=== PATIENT | male | born 1980 | race Caucasian/White ===

== ENCOUNTER 2017-01-16 18:14 | Emergency (ER) | payer OTHER ==
[2017-01-16 18:20] VITALS: BMI 26.9
[2017-01-16 18:30] VITALS: TEMP 98.4; O2SAT 100
[2017-01-16] MEDS ORDERED: Sodium Chloride 0.9% 1,000 ML IV STA (18:31)
[2017-01-16 18:43] LABS: ADD MANUAL DIFF? NO
--- NOTE | 2017-01-16 18:50 | RAD ---
HISTORY: chest pain COMPARISON: Comparison chest 08/06/2015 FINDINGS: LUNGS: Minor bibasilar atelectasis left greater than right minor PLEURA: No significant pleural effusion identified, no pneumothorax apparent. CARDIOVASCULAR: Normal. OSSEOUS STRUCTURES: No significant abnormalities. VISUALIZED UPPER ABDOMEN: Normal. OTHER FINDINGS: None. IMPRESSION: Bibasilar atelectasis left greater than right
[2017-01-16 18:51] LABS: BASO # 0.04 K/mm3 (0.0-2.0); BASO % 0.4 % (0.0-3.0); EOS # 0.2 (0.0-0.7); EOS % 1.8 % (1.5-5.0); GRAN # 5.74 (1.4-6.5); GRAN % 62.9 % (50.0-68.0); HEMATOCRIT 44.3 % (42.0-52.0); LYMPH # 2.4 (1.2-3.4); LYMPH % 25.8 % (22.0-35.0); MEAN CELL VOLUME 87.2 fL (80.0-105.0); MEAN CORPUSCULAR HEMOGLOBIN 30.7 pg (25.0-35.0); MEAN CORPUSCULAR HGB CONC 35.2 g/dl (31.0-37.0); MEAN PLATELET VOLUME 10.7 fl (7.0-11.0); MONO # 0.8 (0.1-0.6); MONO % 9.1 % (1.0-6.0); PLATELET COUNT 185 10^3/uL (120.0-450.0); RED CELL DISTRIBUTION WIDTH 13.3 % (11.5-14.5); WHITE BLOOD COUNT 9.1 10^3/ul (4.5-11.0)
--- NOTE | 2017-01-16 18:54 | ED PDOC ---
Arrival/HPI - General Chief Complaint: Chest Pain Time Seen by Provider: 01/16/17 18:14 Historian: Patient - History of Present Illness Narrative History of Present Illness (Text): 01/16/17 18:15 A 36 year old male, who denies any significant past medical history, presents to the emergency department complaining of a headache. Patient reports he developed a headache earlier this afternoon slowly and got worse over several hours and felt like it was going down his neck. Headache is associated with nausea and chest pain that radiates to the back. Headache is not the worse headache of his life. Patient notes chest pain upon taking a deep breath. He denies any fever, abdominal pain, vomiting, diarrhea, focal weakness or any other complaints at this time. PMD: Dr. Abbott Time/Duration: 1-3 hours Symptom Onset: Sudden Symptom Course: Unchanged Quality: Other Activities at Onset: Rest Context: Home Past Medical History - Provider Review Nursing Documentation Reviewed: Yes - Infectious Disease Hx of Infectious Diseases: None - Cardiac Hx Cardiac Disorders: No - Pulmonary Hx Respiratory Disorders: No - Neurological Hx Neurological Disorder: No - HEENT Hx HEENT Disorder: No - Renal Hx Renal Disorder: No - Endocrine/Metabolic Hx Endocrine Disorders: No - Hematological/Oncological Hx Blood Disorders: No - Integumentary Hx Dermatological Disorder: No - Musculoskeletal/Rheumatological Other/Comment: rt knee surgery - Gastrointestinal Hx Gastrointestinal Disorders: No - Psychiatric Hx Anxiety: Yes Hx Substance Use: No - Surgical History Hx Orthopedic Surgery: Yes (Rt. Knee) - Anesthesia Hx Anesthesia: Yes Hx Anesthesia Reactions: No Hx Malignant Hyperthermia: No - Suicidal Assessment Feels Threatened In Home Enviroment: No Family/Social History - Physician Review Nursing Documentation Reviewed: Yes Family/Social History: Unknown Family HX Smoking Status: Heavy Smoker > 10 Cigarettes Daily Hx Alcohol Use: No Hx Substance Use: No Allergies/Home Meds Allergies/Adverse Reactions: Allergies No Known Allergies Allergy (Verified 01/16/17 18:19) Review of Systems - Physician Review All systems were reviewed & negative as marked: Yes - Review of Systems Constitutional: absent: Fevers Eyes: absent: Vision Changes Respiratory: absent: SOB Cardiovascular: Chest Pain Gastrointestinal: Nausea. absent: Abdominal Pain, Diarrhea, Vomiting Genitourinary Male: Other (burning with urination) Musculoskeletal: Neck Pain Neurological: Headache. absent: Focal Weakness Physical Exam Vital Signs Reviewed: Yes Vital Signs Temp Pulse Resp BP Pulse Ox 01/16/17 19:50 69 18 128/83 100 01/16/17 18:22 98.4 F 65 18 143/89 100 Temperature: Afebrile Blood Pressure: Normal Pulse: Regular Respiratory Rate: Normal Appearance: Positive for: Well-Appearing, Non-Toxic, Comfortable Pain Distress: None Mental Status: Positive for: Alert and Oriented X 3 - Systems Exam Head: Present: Atraumatic, Normocephalic Pupils: Present: PERRL Extroacular Muscles: Present: EOMI Conjunctiva: Present: Normal Mouth: Present: Moist Mucous Membranes Pharnyx: Present: Normal. No: ERYTHEMA, EXUDATE Neck: Present: Normal Range of Motion Respiratory/Chest: Present: Clear to Auscultation, Good Air Exchange. No: Respiratory Distress, Accessory Muscle Use Cardiovascular: Present: Regular Rate and Rhythm, Normal S1, S2. No: Murmurs Abdomen: Present: Normal Bowel Sounds. No: Tenderness, Distention, Peritoneal Signs Back: Present: Normal Inspection Upper Extremity: Present: Normal Inspection. No: Cyanosis, Edema Lower Extremity: Present: Normal Inspection. No: Edema Neurological: Present: GCS=15, CN II-XII Intact, Speech Normal Skin: Present: Warm, Dry, Normal Color. No: Rashes Psychiatric: Present: Alert, Oriented x 3, Normal Insight, Normal Concentration Medical Decision Making ED Course and Treatment: 01/16/17 18:15 Impression: A 36 year old male with a headache and chest pain. Differential Diagnosis include but are not limited to: ACS vs. dissection vs. migraine vs. tension headache Plan: -- Head CT -- Angio Chest CT -- Chest X-ray -- EKG -- Labs -- Urinalysis -- Pepcid, Reglan, Toradol and IV Fluids -- Reassess and disposition Prior Visits: Notes and results from previous visits were reviewed. The patient last presented to the emergency department on 11/04/16 for evaluation of right knee pain. Progress Notes: 01/16/17 21:31 CT Brain Results: FINDINGS: Brain: No intracranial hemorrhage. No mass. No definite edema. Ventricles: No hydrocephalus. Bones/joints: No acute fracture. Soft tissues: Unremarkable. Sinuses: Scattered minimal to mild mucosal thickening of ethmoid, RIGHT frontal sinuses. Mastoid air cells: No mastoid effusion. Orbits: Unremarkable as visualized. IMPRESSION: 1. No acute intracranial abnormality. 2. Incidental/non-acute findings are described above. CTA PE/Dissection Protocol: FINDINGS: Pulmonary arteries: No pulmonary embolism. Aorta: No aortic dissection. No aneurysm. Lungs: Mild atelectasis. No consolidation. Few pulmonary nodules, up to 0.3 cm. Pleural space: No significant effusion. No pneumothorax. Heart: No cardiomegaly. No significant pericardial effusion. Bones/joints: No acute fracture. No dislocation. Soft tissues: Unremarkable. Lymph nodes: Few subcentimeter short axis mediastinal and hilar lymph nodes. IMPRESSION: 1. No aortic dissection. 2. Pulmonary nodules. For low-risk patients, no follow-up is necessary. For high -risk patients (smoking history or other known risk factors) recommend CT at 12 months and if unchanged, no further follow-up. 3. Incidental/non-acute findings are described above. EXAM: CT Angiography Abdomen and Pelvis With Intravenous Contrast COMPARISON: No relevant prior studies available. FINDINGS: VASCULATURE: Aorta: No aortic dissection. No aneurysm. Celiac trunk and mesenteric arteries: No occlusion or significant stenosis. Renal arteries: No occlusion or significant stenosis. Iliac arteries: No occlusion or significant stenosis. ABDOMEN: Liver: No mass. Gallbladder and bile ducts: No calcified stones. No ductal dilation. Pancreas: No ductal dilation. No mass. Spleen: No splenomegaly. Adrenals: No mass. Kidneys and ureters: No hydronephrosis. No solid mass. Stomach and bowel: No obstruction. No mucosal thickening. Appendix: No findings to suggest acute appendicitis. PELVIS: Bladder: No mass. Reproductive: Unremarkable as visualized. ABDOMEN and PELVIS: Intraperitoneal space: No significant fluid collection. No free air. Bones/joints: No acute fracture. No dislocation. Soft tissues: Unremarkable. Lymph nodes: No pathologically enlarged lymph nodes. IMPRESSION: 1. No aortic dissection. 2. Incidental/non-acute findings are described above. Patient with noted history of slow onset headache. Additionally later saying he has had a lot of stress of late regarding work and has been thinking about it a lot. EKG and blood work are unremarkable. Imagin with no acute findings ( patient informed of the pulmonary nodules and need for follow up CT). He does have burning on urination - will d/c on cipro. He reports full resolution of his headache and chest pain and shortness of breath all his symptoms and is feeling much better; he has a pmd and will follow up with him. - Lab Interpretations Lab Results: 01/16/17 18:15 01/16/17 18:15 Lab Results 01/16/17 19:12: Urine Opiates Screen Negative, Urine Methadone Screen Negative, Ur Barbiturates Screen Negative, Ur Phencyclidine Scrn Negative, Ur Amphetamines Screen Negative, U Benzodiazepines Scrn Negative, U Oth Cocaine Metabols Negative, U Cannabinoids Screen Negative 01/16/17 19:12: Urine Color Yellow, Urine Appearance Clear, Urine pH 6.0, Ur Specific Martin >= 1.030, Urine Protein Negative, Urine Glucose (UA) Negative, Urine Ketones Negative, Urine Blood Negative, Urine Nitrate Negative, Urine Bilirubin Negative, Urine Urobilinogen 0.2, Ur Leukocyte Esterase Small H, Urine RBC 1 - 3, Urine WBC 5 - 10, Ur Epithelial Cells 0 - 2, Urine Bacteria Mod 01/16/17 18:15: Sodium 139, Potassium 3.7, Chloride 101, Carbon Dioxide 27, Anion Gap 15, BUN 11, Creatinine 0.9, Est GFR ( Amer) > 60, Est GFR (Non- Af Amer) > 60, Random Glucose 88, Calcium 9.4, Magnesium 2.2, Total Bilirubin 1.3, AST 22, ALT 42, Alkaline Phosphatase 74, Lactate Dehydrogenase 455, Total Creatine Kinase 117, Troponin I < 0.01, NT-Pro-B Natriuret Pep 24.5, Total Protein 8.1, Albumin 4.3, Globulin 3.8, Albumin/Globulin Ratio 1.1, Lipase 85 01/16/17 18:15: PT 10.9, INR 1.01, APTT 26.7 01/16/17 18:15: WBC 9.1 D, RBC 5.08, Hgb 15.6, Hct 44.3, MCV 87.2, MCH 30.7, MCHC 35.2, RDW 13.3, Plt Count 185, MPV 10.7, Gran % 62.9, Lymph % (Auto) 25.8, [place] % (Auto) 9.1 H, Eos % (Auto) 1.8, Baso % (Auto) 0.4, Gran # 5.74, Lymph # 2.4, [place] # 0.8 H, Eos # 0.2, Baso # 0.04 I have reviewed the lab results: Yes - RAD Interpretation Narrative RAD Interpretations (Text): 01/16/17 21:30 CXR: nad as read by me Radiology Orders: 01/16/17 18:27 CHEST PORTABLE [RAD] Stat 01/16/17 18:28 Brain [HEAD W/O CONTRAST] [CT] Stat 01/16/17 18:31 ANGIOGRAPHY DISECTION PROTOCOL [CT] Stat - EKG Interpretation EKG Interpretation (Text): 01/16/17 21:30 NSR @ 66; early repol; no ST/T changes c/w previous on 07/31/2016; normal intervals; normal axis. - Medication Orders Current Medication Orders: Discontinued Medications Famotidine (Pepcid) 20 mg IVP STAT STA Stop: 01/16/17 18:32 Last Admin: 01/16/17 18:44 Dose: 20 mg Sodium Chloride (Sodium Chloride 0.9%) 1,000 mls @ 999 mls/hr IV .Q1H1M STA Stop: 01/16/17 19:31 Last Admin: 01/16/17 18:45 Dose: 999 mls/hr Iohexol (Omnipaque 350 150 Ml) Confirm Administered Dose 150 ml .ROUTE .STK-MED ONE Stop: 01/16/17 19:13 Ketorolac Tromethamine (Toradol) 30 mg IVP STAT STA Stop: 01/16/17 18:32 Last Admin: 01/16/17 18:44 Dose: 30 mg Metoclopramide HCl (Reglan) 10 mg IVP STAT STA Stop: 01/16/17 18:32 Last Admin: 01/16/17 18:44 Dose: 10 mg - Scribe Statement The provider has reviewed the documentation as recorded by the Connie Causey Provider Scribe Attestation: All medical record entries made by the Marianaibdemarcus were at my direction and personally dictated by me. I have reviewed the chart and agree that the record accurately reflects my personal performance of the history, physical exam, medical decision making, and the department course for this patient. I have also personally directed, reviewed, and agree with the discharge instructions and disposition. Disposition/Present on Arrival - Present on Arrival Any Indicators Present on Arrival: No History of DVT/PE: No History of Uncontrolled Diabetes: No Urinary Catheter: No History of Decub. Ulcer: No History Surgical Site Infection Following: None - Disposition Have Diagnosis and Disposition been Completed?: Yes Diagnosis: Headache, Atypical chest pain, Dysuria Disposition: HOME/ ROUTINE Disposition Time: 21:40 Patient Plan: Discharge Condition: GOOD Discharge Instructions (ExitCare): Chest Pain (ED), Tension Headache (ED), Pulmonary Nodules (ED) Additional Instructions: Stop smoking. Follow up with your primary care doctor. Antibiotics as prescribed for urinary burning. Recommend CT scan of the chest in 6-12 months, to be arranged by your primary care doctor to follow up your pulmonary nodules. Return to the emergency department if any new concerning symptoms. Prescriptions: Ciprofloxacin [Cipro] 1 tab PO BID #14 tab Referrals: Dai Abbott MD [Primary Care Provider] - Follow up with primary Forms: WORK NOTE
[2017-01-16 18:57] LABS: ALB/GLOB RATIO 1.1 (1.1-1.8); ALKALINE PHOSPHATASE 74 U/L (38-133); ALT/SGPT 42 U/L (7-56); AST/SGOT 22 U/L (15-59); BILIRUBIN,TOTAL 1.3 mg/dL (0.2-1.3); BLOOD UREA NITROGEN 11 mg/dL (7-21); CALCIUM 9.4 mg/dL (8.4-10.5); CARBON DIOXIDE 27 mmol/L (21-33); CHLORIDE 101 mmol/L (98-107); GFR AFRICAN-AMERICAN > 60; GLUCOSE,RANDOM 88 mg/dL (70-110); LIPASE 85 U/L (23-300); MAGNESIUM 2.2 mg/dL (1.7-2.2); POTASSIUM 3.7 mmol/L (3.6-5.0); SODIUM 139 mmol/L (132-148); TOTAL PROTEIN 8.1 g/dL (5.8-8.3)
[2017-01-16 19:02] LABS: INR 1.01 (0.93-1.08); PARTIAL THROMBOPLASTIN TIME 26.7 Seconds (23.7-30.8)
[2017-01-16 19:09] LABS: TROPONIN I < 0.01 ng/mL
[2017-01-16 19:20] LABS: URINE BILIRUBIN NEGATIVE (NEGATIVE); URINE BLOOD NEGATIVE (NEGATIVE); URINE GLUCOSE (UA) NEGATIVE (NEGATIVE); URINE KETONE NEGATIVE (NEGATIVE); URINE LEUKOCYTE ESTERASE SMALL Leu/uL (NEGATIVE); URINE PROTEIN NEGATIVE mg/dL (<30 mg/dL); URINE UROBILINOGEN 0.2 E.U./dL (<1 E.U./dL)
[2017-01-16 19:44] LABS: URINE APPEARANCE CLEAR (CLEAR); URINE COLOR YELLOW (YELLOW)
[2017-01-16 20:18] LABS: URINE BACTERIA MOD (NEG); URINE EPITHELIAL CELLS 0 - 2 /hpf (0-5)
--- NOTE | 2017-01-16 20:59 | CT ---
EXAM: CT Head Without Intravenous Contrast CLINICAL HISTORY: 36 years old, male; Pain; Headache; Headache not specified TECHNIQUE: Axial computed tomography images of the head/brain without intravenous contrast. This CT exam was performed using one or more of the following dose reduction techniques: automated exposure control, adjustment of the mA and/or kV according to patient size, and/or use of iterative reconstruction technique. COMPARISON: CT - HEAD W/O CONTRAST 06/02/2016 11:33:09 AM FINDINGS: Brain: No intracranial hemorrhage. No mass. No definite edema. Ventricles: No hydrocephalus. Bones/joints: No acute fracture. Soft tissues: Unremarkable. Sinuses: Scattered minimal to mild mucosal thickening of ethmoid, RIGHT frontal sinuses. Mastoid air cells: No mastoid effusion. Orbits: Unremarkable as visualized. IMPRESSION: 1. No acute intracranial abnormality. 2. Incidental/non-acute findings are described above.
--- NOTE | 2017-01-16 21:16 | CT ---
EXAM: CT Angiography Chest Without and With Intravenous Contrast CLINICAL HISTORY: 36 years old, male; Signs and symptoms; Other: Chest pain radiating to back; Angina; Patient HX: R/O pe or disection; Additional info: Chest pain radiating to the back TECHNIQUE: Axial computed tomographic angiography images of the chest without and with intravenous contrast using pulmonary embolism protocol. This CT exam was performed using one or more of the following dose reduction techniques: automated exposure control, adjustment of the mA and/or kV according to patient size, and/or use of iterative reconstruction technique. MIP reconstructed images were created and reviewed. Coronal and sagittal reformatted images were created and reviewed. CONTRAST: 147 mL of OMNI 350 administered intravenously. COMPARISON: No relevant prior studies available. FINDINGS: Pulmonary arteries: No pulmonary embolism. Aorta: No aortic dissection. No aneurysm. Lungs: Mild atelectasis. No consolidation. Few pulmonary nodules, up to 0.3 cm. Pleural space: No significant effusion. No pneumothorax. Heart: No cardiomegaly. No significant pericardial effusion. Bones/joints: No acute fracture. No dislocation. Soft tissues: Unremarkable. Lymph nodes: Few subcentimeter short axis mediastinal and hilar lymph nodes. IMPRESSION: 1. No aortic dissection. 2. Pulmonary nodules. For low-risk patients, no follow-up is necessary. For high-risk patients (smoking history or other known risk factors) recommend CT at 12 months and if unchanged, no further follow-up. 3. Incidental/non-acute findings are described above. EXAM: CT Angiography Abdomen and Pelvis With Intravenous Contrast CLINICAL HISTORY: 36 years old, male; Signs and symptoms; Other: Chest pain radiating to back; Angina; Patient HX: R/O pe or disection; Additional info: Chest pain radiating to the back TECHNIQUE: Axial computed tomographic angiography images of the abdomen and pelvis with intravenous contrast. This CT exam was performed using one or more of the following dose reduction techniques: automated exposure control, adjustment of the mA and/or kV according to patient size, and/or use of iterative reconstruction technique. MIP reconstructed images were created and reviewed. Coronal and sagittal reformatted images were created and reviewed. CONTRAST: 147 mL of OMNI 350 administered intravenously. COMPARISON: No relevant prior studies available. FINDINGS: VASCULATURE: Aorta: No aortic dissection. No aneurysm. Celiac trunk and mesenteric arteries: No occlusion or significant stenosis. Renal arteries: No occlusion or significant stenosis. Iliac arteries: No occlusion or significant stenosis. ABDOMEN: Liver: No mass. Gallbladder and bile ducts: No calcified stones. No ductal dilation. Pancreas: No ductal dilation. No mass. Spleen: No splenomegaly. Adrenals: No mass. Kidneys and ureters: No hydronephrosis. No solid mass. Stomach and bowel: No obstruction. No mucosal thickening. Appendix: No findings to suggest acute appendicitis. PELVIS: Bladder: No mass. Reproductive: Unremarkable as visualized. ABDOMEN and PELVIS: Intraperitoneal space: No significant fluid collection. No free air. Bones/joints: No acute fracture. No dislocation. Soft tissues: Unremarkable. Lymph nodes: No pathologically enlarged lymph nodes. IMPRESSION: 1. No aortic dissection. 2. Incidental/non-acute findings are described above.
[2017-01-16 22:06] VITALS: BP 145/77; PULSE 64; RESP 20
--- NOTE | 2017-01-17 10:26 | CARD ---
APPROVED REPORT EKG Measurement Heart [id number] <Conclusion> Sinus rhythm with 1st degree AV block Early repolarization
== END 2017-01-16 22:07 | disposition home or self-care (01) ==
LOC: ED 18:14
DX: R07.89 Other chest pain (principal); R51 Headache; R30.0 Dysuria
CPT/HCPCS: 70450; 71010; 71275; 74175; 80053; 80324; 80345; 80346; 80349; 80353; 80358; 80361; 81001; 82550; 83615; 83690; 83735; 83880; 83992; 84484; 85025; 85610; 85730; 87086; 87491; 87591; 93005; 96361; 96374; 96375; 99285; J1885; J2765; J7040; Q9967

== ENCOUNTER 2017-02-10 21:30 | Emergency (ER) | payer OTHER ==
[2017-02-10 21:39] VITALS: BMI 26.9
[2017-02-10 21:59] VITALS: BP 129/83; PULSE 80; RESP 18; TEMP 98.1; O2SAT 99
--- NOTE | 2017-02-10 22:10 | ED PDOC ---
Arrival/HPI <Yayo Soto - Last Filed: 02/10/17 23:47> - General Historian: Patient - History of Present Illness Time/Duration: < week Symptom Onset: Gradual Symptom Course: Unchanged <Tu Thomas - Last Filed: 02/11/17 00:01> - General Chief Complaint: Abnormal Skin Integrity Time Seen by Provider: 02/10/17 21:35 - History of Present Illness Narrative History of Present Illness (Text): 36 M with pmh of smoking presents with pain in his surgical scar. Pt states that aprox 2 weeks ago he had an Lipoma removed from his LUQ of his abdomen and now he feels pain by the scar. He also c/o of a productive cough with green phlegm that has been present for a few days. Denies any fevers or chills. He denies any carpenter, dizziness, sob, cp, abd pain, n/v/d. (Tu Thomas) Past Medical History - Provider Review Nursing Documentation Reviewed: Yes - Infectious Disease Hx of Infectious Diseases: None - Cardiac Hx Cardiac Disorders: No - Pulmonary Hx Respiratory Disorders: No - Neurological Hx Neurological Disorder: No - HEENT Hx HEENT Disorder: No - Renal Hx Renal Disorder: No - Endocrine/Metabolic Hx Endocrine Disorders: No - Hematological/Oncological Hx Blood Disorders: No - Integumentary Hx Dermatological Disorder: No - Musculoskeletal/Rheumatological Other/Comment: rt knee surgery - Gastrointestinal Hx Gastrointestinal Disorders: No - Psychiatric Hx Anxiety: Yes Hx Substance Use: No - Surgical History Hx Orthopedic Surgery: Yes (Rt. Knee) Other/Comment: tumor removal 2 weeks ago - Anesthesia Hx Anesthesia: Yes Hx Anesthesia Reactions: No Hx Malignant Hyperthermia: No - Suicidal Assessment Feels Threatened In Home Enviroment: No <Tu Thomas - Last Filed: 02/11/17 00:01> Family/Social History Family/Social History: No Known Family HX Smoking Status: Heavy Smoker > 10 Cigarettes Daily Hx Alcohol Use: No Hx Substance Use: No <Tu Thomas - Last Filed: 02/11/17 00:01> Allergies/Home Meds <Yayo Soto - Last Filed: 02/10/17 23:47> <Tu Thomas - Last Filed: 02/11/17 00:01> Allergies/Adverse Reactions: Allergies No Known Allergies Allergy (Verified 01/16/17 18:19) Review of Systems - Physician Review All systems were reviewed & negative as marked: Yes - Review of Systems Constitutional: absent: Fatigue, Fevers Respiratory: Cough, Sputum (green ). absent: SOB Cardiovascular: absent: Chest Pain Gastrointestinal: absent: Abdominal Pain, Nausea, Vomiting <Tu Thomas - Last Filed: 02/11/17 00:01> Physical Exam Vital Signs Reviewed: Yes Temperature: Afebrile Blood Pressure: Normal Pulse: Regular Respiratory Rate: Normal Appearance: Positive for: Well-Appearing, Non-Toxic, Comfortable Pain Distress: None Mental Status: Positive for: Alert and Oriented X 3 - Systems Exam Head: Present: Atraumatic, Normocephalic Pupils: Present: PERRL Extroacular Muscles: Present: EOMI Conjunctiva: Present: Normal Mouth: Present: Moist Mucous Membranes Neck: Present: Normal Range of Motion Respiratory/Chest: Present: Clear to Auscultation, Good Air Exchange. No: Respiratory Distress, Accessory Muscle Use, Wheezes, Rales, Rhonchi Cardiovascular: Present: Regular Rate and Rhythm, Normal S1, S2. No: Murmurs Abdomen: Present: Normal Bowel Sounds, Scars (LUQ surgical scar aprox 2-3 cm. No erythema, edema, or drainage. non fluctuant. Sutures from surgery in place ) . No: Tenderness, Distention, Peritoneal Signs Upper Extremity: Present: Normal Inspection. No: Cyanosis, Edema Lower Extremity: Present: Normal Inspection. No: Edema Neurological: Present: GCS=15, CN II-XII Intact, Speech Normal Skin: Present: Warm, Dry, Normal Color. No: Rashes Psychiatric: Present: Alert, Oriented x 3, Normal Insight, Normal Concentration <Tu Thomas - Last Filed: 02/11/17 00:01> Vital Signs Temp Pulse Resp BP Pulse Ox 02/10/17 21:49 98.1 F 80 18 129/83 99 Medical Decision Making - RAD Interpretation Lap Hand Tool: ED Physician <Yayo Soto - Last Filed: 02/10/17 23:47> <Tu Thomas - Last Filed: 02/11/17 00:01> ED Course and Treatment: Pt seen and evaluated by medical operations supervisor. Pt presented for pain to surgical scar site s/p lipoma removal from LUQ. Pt also complaining of productive cough with green phlegm. Aware and agree with HPI, clinical findings, plan, and management. Plan: -- Chest X-ray -- Duoneb -- Reassess and disposition Progress Notes: (Yayo Soto) Impression: 36 M with pmh of smking presents with LUQ abdominal surgical scar and productive cough. DDx including but not limited to : r/o Cellulites / Broncitis / r/o pneumonia Plan: - Duoneb - Chest Xray - Reassess and disposition Progress note: 02/10/17 22:45 - Removed the sutures under sterile technique from the surgery done 2 weeks ago. Applied Bacitracin and placed 5 Steri strips on the incision covered by 4x4 leonard. The wound is non erythematous, non edematous, no drainage visualized. No surrounding cellulites. 02/10/17 23:51 CXR as read by me accompanied by Dr Soto shows no acute disease. Pt states that he feels better and his symptoms have improved. He as been instructed to follow up with his Surgeon and PMD with in 1-2 days. He was also instructed to take azithromycin 250mg for days 2-5. Stat 500mg dose here. Also recommended to stop smoking. Pt verbalized understanding. (Tu Thoams) - RAD Interpretation Radiology Orders: 02/10/17 22:01 CXR [CHEST TWO VIEWS (PA/LAT)] [RAD] Stat - Medication Orders Current Medication Orders: Azithromycin (Zithromax) 500 mg PO ONCE STA PRN Reason: Protocol Stop: 02/10/17 23:49 Discontinued Medications Albuterol/Ipratropium (Duoneb 3 Mg/0.5 Mg (3 Ml) Ud) 3 ml IH Q15M JEREMIAS Stop: 02/10/17 22:46 Last Admin: 02/10/17 22:14 Dose: 3 ml - PA / MICA PLATE LAYER HAND / Resident Statement PJ has reviewed & agrees with the documentation as recorded. PJ has examined the patient and agrees with the treatment plan. <Yayo Soto - Last Filed: 02/10/17 23:47> - PA / MICA PLATE LAYER HAND / Resident Statement PJ has reviewed & agrees with the documentation as recorded. PJ has examined the patient and agrees with the treatment plan. <Jovany Thomasa - Last Filed: 02/11/17 00:01> Disposition/Present on Arrival <Yayo Soto - Last Filed: 02/10/17 23:47> - Present on Arrival Any Indicators Present on Arrival: No History of DVT/PE: No History of Uncontrolled Diabetes: No Urinary Catheter: No History of Decub. Ulcer: No History Surgical Site Infection Following: None - Disposition Have Diagnosis and Disposition been Completed?: Yes Disposition Time: 23:45 Patient Plan: Discharge <Jovany Thomasa - Last Filed: 02/11/17 00:01> - Disposition Diagnosis: Visit for suture removal, Bronchitis Disposition: HOME/ ROUTINE Condition: IMPROVED Additional Instructions: Garcia Naylor, thank you for letting us take care of you today. Your provider was Dr Soto. You were treated for Bronchitis and Suture removal. The emergency medical care you received today was directed at your acute symptoms. If you were prescribed any medication, please fill it and take as directed. It may take several days for your symptoms to resolve. Return to the Emergency Department if your symptoms worsen, do not improve, or if you have any other problems. Please contact your doctor or call one of the physicians/clinics you have been referred to that are listed on the Patient Visit Information form that is included in your discharge packet. Bring any paperwork you were given at discharge with you along with any medications you are taking to your follow up visit. Our treatment cannot replace ongoing medical care by a primary care provider (PCP) outside of the emergency department. Thank you for allowing the [facility] team to be part of your care today. Follow up with kitty PMD with in 1-2 days. Follow up with your surgeon with in next few days. If your symptom worsen come back to the ED. Prescriptions: Azithromycin [Zithromax] 250 mg PO DAILY #4 tab Referrals: Dai Abbott MD [Primary Care Provider] - Follow up with primary
[2017-02-10] MEDS: Albuterol-Ipratrop 3 mg / 0.5 (3 ml) UD IH SCH ×3 (22:14→22:55)
--- NOTE | 2017-02-11 09:05 | RAD ---
HISTORY: Shortness of breath, cough COMPARISON: 01/16/2017 TECHNIQUE: Chest PA and lateral FINDINGS: LUNGS: The lungs are well inflated and clear. PLEURA: No significant pleural effusion identified. No pneumothorax apparent. CARDIOVASCULAR: Normal. OSSEOUS STRUCTURES: No significant abnormalities. VISUALIZED UPPER ABDOMEN: Normal. OTHER FINDINGS: None. IMPRESSION: No active pulmonary disease.
== END 2017-02-11 00:13 | disposition home or self-care (01) ==
LOC: ED 21:30
DX: J40 Bronchitis, not specified as acute or chronic (principal); F17.210 Nicotine dependence, cigarettes, uncomplicated; Z48.02 Encounter for removal of sutures

== ENCOUNTER 2017-05-22 21:05 | Inpatient (IN) | payer OTHER ==
--- NOTE | 2017-05-22 21:21 | ED PDOC ---
Arrival/HPI - General Chief Complaint: Chest Pain Time Seen by Provider: 05/22/17 21:13 Historian: Patient - History of Present Illness Narrative History of Present Illness (Text): 05/22/17 21:20 Dayday Zelaya is a 36 year old male, with no significant past medical history, who presented to the Emergency department complaining of chest pain since this morning. Patient reports associated abdominal pain, cough, and vomiting. Patient notes he took [id number] medication for pain at home, but vomited them afterwards. Patient denies any fever, chills, shortness of breath, diarrhea , urinary symptoms, back pain, neck pain, headache, dizziness, or any other complaints. PMD: Dr. Christa Abbott Symptom Onset: Gradual Symptom Course: Unchanged Activities at Onset: Light Context: Home Past Medical History - Provider Review Nursing Documentation Reviewed: Yes - Infectious Disease Hx of Infectious Diseases: None - Cardiac Hx Cardiac Disorders: No - Pulmonary Hx Asthma: Yes - Neurological Hx Migraine: Yes - HEENT Hx HEENT Disorder: No - Renal Hx Renal Disorder: No - Endocrine/Metabolic Hx Endocrine Disorders: No - Hematological/Oncological Hx Blood Disorders: No - Integumentary Hx Dermatological Disorder: No - Musculoskeletal/Rheumatological Other/Comment: rt knee surgery - Gastrointestinal Hx Gastrointestinal Disorders: No - Psychiatric Hx Anxiety: Yes Hx Substance Use: No - Surgical History Other/Comment: right knee repair 2005 with screw placement - Anesthesia Hx Anesthesia: Yes Hx Anesthesia Reactions: No Hx Malignant Hyperthermia: No - Suicidal Assessment Feels Threatened In Home Enviroment: No Family/Social History - Physician Review Nursing Documentation Reviewed: Yes Family/Social History: Unknown Family HX Smoking Status: Heavy Smoker > 10 Cigarettes Daily Hx Alcohol Use: No Hx Substance Use: No Allergies/Home Meds Allergies/Adverse Reactions: Allergies No Known Allergies Allergy (Verified 05/15/17 21:14) Review of Systems - Physician Review All systems were reviewed & negative as marked: Yes - Review of Systems Constitutional: Normal. absent: Fevers Eyes: Normal ENT: Normal Respiratory: Cough Cardiovascular: Chest Pain Gastrointestinal: Abdominal Pain, Vomiting Genitourinary Male: Normal. absent: Dysuria, Frequency, Hematuria, Urinary Output Changes Musculoskeletal: Normal. absent: Back Pain, Neck Pain Skin: Normal. absent: Rash Neurological: Normal. absent: Headache, Dizziness Endocrine: Normal Hemo/Lymphatic: Normal Psychiatric: Normal Physical Exam Vital Signs Reviewed: Yes Vital Signs Temp Pulse Pulse Resp BP Pulse Ox 05/23/17 06:16 72 18 128/84 99 05/23/17 03:34 79 17 98 05/23/17 00:55 98.0 F 71 18 123/87 100 05/22/17 21:10 78 05/22/17 21:07 99.1 F 88 18 139/71 97 Temperature: Afebrile Blood Pressure: Normal Pulse: Regular Respiratory Rate: Normal Appearance: Positive for: Well-Appearing, Non-Toxic, Comfortable Pain Distress: None Mental Status: Positive for: Alert and Oriented X 3 - Systems Exam Head: Present: Atraumatic, Normocephalic Pupils: Present: PERRL Extroacular Muscles: Present: EOMI Conjunctiva: Present: Normal Mouth: Present: Moist Mucous Membranes Neck: Present: Normal Range of Motion Respiratory/Chest: Present: Clear to Auscultation, Good Air Exchange. No: Respiratory Distress, Accessory Muscle Use Cardiovascular: Present: Regular Rate and Rhythm, Normal S1, S2. No: Murmurs Abdomen: Present: Tenderness (LLQ tenderness), Normal Bowel Sounds. No: Distention, Peritoneal Signs Back: Present: Normal Inspection Upper Extremity: Present: Normal Inspection. No: Cyanosis, Edema Lower Extremity: Present: Normal Inspection. No: Edema Neurological: Present: GCS=15, CN II-XII Intact, Speech Normal Skin: Present: Warm, Dry, Normal Color. No: Rashes Psychiatric: Present: Alert, Oriented x 3, Normal Insight, Normal Concentration Medical Decision Making ED Course and Treatment: 05/22/17 21:20 Impression: 36 year old male complaining of chest pain, abdominal pain, cough, 1 episodes of vomiting. Plan: -- CT Abdomen and Pelvis w/o contrast -- EKG -- Labs, cardiac enzymes, amylase, lipase, blood cultures -- UA -- IV fluids -- Zofran -- Pepcid -- Protonix -- Morphine -- Reassess and disposition Prior Visits: Notes and results from previous visits were reviewed. On 05/15/2017, pt was seen in the [facility] emergency department for chest pain. Pt was d/c home. Progress Notes: Reviewed EKG, NSR at 85 bpm. Early repolarization. No acute changes. 05/23/17 00:14 Reviewed radiology, CT Abdomen and Pelvis shows: 1. No definite acute intraabdominal abnormality. 05/23/17 02:41 Chest X-ray reviewed, shows no acute processes. 05/23/17 03:50 Pt still experience pain, wail admit to the hospital 05/23/17 03:54 Case discussed with certified ophthalmic medical technician filling station laborer, who is aware and agrees with plan. 05/23/17 03:[address] De La Vega, who is aware and agrees with plan. Accepts pt in to hospitalist service. Pt will go to [facility] observation for abdominal pain. Pt agreeable with plan. - Lab Interpretations Microbiology Results: Microbiology Results 05/22/17 21:51 Blood-Venous Blood Culture - Preliminary NO GROWTH AFTER 48 HOURS 05/22/17 21:31 Blood-Venous Blood Culture - Preliminary NO GROWTH AFTER 48 HOURS Lab Results: 05/23/17 10:00 05/23/17 10:00 Lab Results 05/23/17 11:20: Urine Opiates Screen Positive H, Urine Methadone Screen Negative , Ur Barbiturates Screen Negative, Ur Phencyclidine Scrn Negative, Ur Amphetamines Screen Negative, U Benzodiazepines Scrn Negative, U Oth Cocaine Metabols Negative, U Cannabinoids Screen Negative 05/23/17 10:00: Sodium 141, Potassium 3.8, Chloride 102, Carbon Dioxide 30, Anion Gap 13, BUN 9, Creatinine 0.9, Est GFR ( Amer) > 60, Est GFR (Non- Af Amer) > 60, Random Glucose 103, Calcium 8.8 05/23/17 10:00: WBC 7.9, RBC 4.74, Hgb 14.4, Hct 42.5, MCV 89.7, MCH 30.4, MCHC 33.9, RDW 13.4, Plt Count 172, MPV 10.5 05/23/17 00:57: Urine Color Yellow, Urine Appearance Clear, Urine pH 6.0, Ur Specific [place] 1.025, Urine Protein Negative, Urine Glucose (UA) Negative, Urine Ketones Trace H, Urine Blood Negative, Urine Nitrate Negative, Urine Bilirubin Negative, Urine Urobilinogen 1.0 H, Ur Leukocyte Esterase Negative 05/22/17 21:19: Sodium 139, Potassium 3.9, Chloride 102, Carbon Dioxide 25, Anion Gap 16, BUN 10, Creatinine 0.8, Est GFR ( Amer) > 60, Est GFR (Non- Af Amer) > 60, Random Glucose 82, Calcium 9.2, Total Bilirubin 0.7, AST 27, ALT 37, Alkaline Phosphatase 74, Lactate Dehydrogenase 537, Total Creatine Kinase 84 , Troponin I < 0.01, Total Protein 7.9, Albumin 4.6, Globulin 3.3, Albumin/ Globulin Ratio 1.4, Amylase 126 H, Lipase 230 05/22/17 21:19: PT 10.9, INR 1.01, APTT 27.7 05/22/17 21:19: WBC 8.4, RBC 5.20, Hgb 16.1, Hct 45.4, MCV 87.3, MCH 31.0, MCHC 35.5, RDW 13.2, Plt Count 210, MPV 10.8, Gran % 56.4, Lymph % (Auto) 31.1, [place] % (Auto) 10.0 H, Eos % (Auto) 2.0, Baso % (Auto) 0.5, Gran # 4.71, Lymph # 2.6, [place] # 0.8 H, Eos # 0.2, Baso # 0.04 I have reviewed the lab results: Yes - RAD Interpretation Narrative RAD Interpretations (Text): CT Abdomen and Pelvis shows: Limitations: Lack of intravenous contrast. Lower thorax: Minimal atelectasis. ABDOMEN: Liver: Unremarkable. Gallbladder and bile ducts: No calcified stones. No ductal dilation. Pancreas: Unremarkable. No ductal dilation. Spleen: No splenomegaly. Adrenals: No mass. Kidneys and ureters: No renal calculi. No hydronephrosis. Stomach and bowel: No definite mural thickening. No obstruction. Appendix: No definite findings to suggest acute appendicitis. PELVIS: Bladder: Unremarkable. No stones. Reproductive: Unremarkable as visualized. ABDOMEN and PELVIS: Intraperitoneal space: No significant fluid collection. No free air. Bones/joints: No acute fracture. Soft tissues: Unremarkable. Vasculature: Unremarkable. No aneurysm. Lymph nodes: No pathologically enlarged lymph nodes. IMPRESSION: 1. No definite acute intraabdominal abnormality. Radiology Orders: 05/22/17 21:26 ABD & PELVIS W/O PO OR IV CONT [CT] Stat 05/22/17 21:28 CHEST TWO VIEWS (PA/LAT) [RAD] Stat 05/23/17 11:31 CHEST W/O CONTRAST [CT] Routine 05/23/17 11:42 ABDOMEN COMPLETE [US] Routine Mine Deputy: ED Physician, Radiologist - EKG Interpretation Interpreted by ED Physician: Yes Type: 12 lead EKG - Medication Orders Current Medication Orders: Discontinued Medications Acetaminophen (Tylenol 325mg Tab) Confirm Administered Dose 650 mg .ROUTE .STK- MED ONE Stop: 05/24/17 16:06 Acetaminophen (Tylenol 325mg Tab) 650 mg PO STAT STA Stop: 05/24/17 16:09 Last Admin: 05/24/17 16:30 Dose: Not Given Non-Admin Reason: Patient Refused Acetaminophen (Tylenol 325mg Tab) 650 mg PO .STK-MED ONE Stop: 05/24/17 16:06 Last Admin: 05/24/17 16:05 Dose: 650 mg Albuterol/Ipratropium (Duoneb 3 Mg/0.5 Mg (3 Ml) Ud) 3 ml IH STAT STA Stop: 05/23/17 05:29 Last Admin: 05/23/17 05:48 Dose: 3 ml Albuterol/Ipratropium (Duoneb 3 Mg/0.5 Mg (3 Ml) Ud) 3 ml IH [id number] JEREMIAS Last Admin: 05/25/17 07:45 Dose: 3 ml Diphenhydramine HCl (Benadryl) 25 mg IVP ONCE ONE Stop: 05/23/17 05:17 Last Admin: 05/23/17 05:47 Dose: 25 mg Famotidine (Pepcid) 20 mg IVP STAT STA Stop: 05/22/17 21:27 Last Admin: 05/22/17 21:50 Dose: 20 mg Fentanyl (Fentanyl) Confirm Administered Dose 100 mcg .ROUTE .STK-MED ONE Stop: 05/24/17 15:23 Guaifenesin/Dextromethorphan (Robitussin Dm) 10 ml PO Q4H PRN PRN Reason: Cough Heparin Sodium (Porcine) (Heparin) 5,000 units SC Q12 JEREMIAS PRN Reason: Protocol Last Admin: 05/24/17 22:59 Dose: 5,000 units Hydromorphone HCl (Dilaudid) 2 mg IVP STAT STA Stop: 05/23/17 03:54 Last Admin: 05/23/17 04:25 Dose: 2 mg Hydromorphone HCl (Dilaudid) 2 mg IVP STAT STA Stop: 05/23/17 23:12 Last Admin: 05/23/17 23:21 Dose: 2 mg Pantoprazole Sodium 40 mg/ (Sodium Chloride) 100 mls @ 400 mls/hr IV STAT STA Stop: 05/22/17 21:40 Last Admin: 05/22/17 21:51 Dose: 400 mls/hr Sodium Chloride (Sodium Chloride 0.9%) 1,000 mls @ 100 mls/hr IV .Q10H STA Stop: 05/23/17 07:25 Last Admin: 05/22/17 21:51 Dose: 100 mls/hr Sodium Chloride (Sodium Chloride 0.9%) 1,000 mls @ 125 mls/hr IV .Q8H JEREMIAS Last Admin: 05/24/17 16:48 Dose: 125 mls/hr Ketorolac Tromethamine (Toradol) 15 mg IVP ONCE ONE Stop: 05/24/17 12:21 Lidocaine (Lidocaine) Confirm Administered Dose 100 mg .ROUTE .STK-MED ONE Stop: 05/24/17 15:24 Morphine Sulfate (Morphine) 2 mg IVP STAT STA Stop: 05/22/17 21:27 Last Admin: 05/22/17 21:50 Dose: 2 mg Nicotine (Nicoderm Cq) 1 patch TD DAILY JREEMIAS Last Admin: 05/25/17 09:23 Dose: 1 patch Ondansetron HCl (Zofran Inj) 4 mg IVP STAT STA Stop: 05/22/17 21:27 Last Admin: 05/22/17 21:50 Dose: 4 mg Ondansetron HCl (Zofran Inj) 4 mg IVP Q4H PRN PRN Reason: Nausea/Vomiting Last Admin: 05/24/17 10:11 Dose: 4 mg Pantoprazole Sodium (Protonix Ec Tab) 40 mg PO 0600 JEREMIAS Pantoprazole Sodium (Protonix Ec Tab) 40 mg PO 0600 JEREMIAS Last Admin: 05/25/17 05:30 Dose: 40 mg Propofol (Diprivan) Confirm Administered Dose 200 mg .ROUTE .STK-MED ONE Stop: 05/24/17 15:23 - Scribe Statement The provider has reviewed the documentation as recorded by the Connie Graves Provider Scribe Attestation: All medical record entries made by the Scribe were at my direction and personally dictated by me. I have reviewed the chart and agree that the record accurately reflects my personal performance of the history, physical exam, medical decision making, and the department course for this patient. I have also personally directed, reviewed, and agree with the discharge instructions and disposition. Disposition/Present on Arrival - Present on Arrival Any Indicators Present on Arrival: No History of DVT/PE: No History of Uncontrolled Diabetes: No Urinary Catheter: No History of Decub. Ulcer: No History Surgical Site Infection Following: None - Disposition Have Diagnosis and Disposition been Completed?: Yes Diagnosis: Chest pain, Abdominal pain Disposition: HOSPITALIZED Disposition Time: 04:00 Condition: GOOD
[2017-05-22] MEDS ORDERED: Pantoprazole 40 MG in Sodium Chloride 0.9% 100 ML IV STA (21:26)
[2017-05-22] MEDS ORDERED: Morphine 4 mg/ml ISec IVP STA (21:26)
[2017-05-22] MEDS ORDERED: Sodium Chloride 0.9% 1,000 ML IV STA (21:26)
[2017-05-22 21:43] LABS: BASO # 0.04 K/mm3 (0.0-2.0); BASO % 0.5 % (0.0-3.0); EOS # 0.2 (0.0-0.7); GRAN # 4.71 (1.4-6.5); GRAN % 56.4 % (50.0-68.0); HEMATOCRIT 45.4 % (42.0-52.0); LYMPH # 2.6 (1.2-3.4); LYMPH % 31.1 % (22.0-35.0); MEAN CELL VOLUME 87.3 fl (80.0-105.0); MEAN CORPUSCULAR HGB CONC 35.5 g/dl (31.0-37.0); MEAN PLATELET VOLUME 10.8 fl (7.0-11.0); MONO # 0.8 (0.1-0.6); RED CELL DISTRIBUTION WIDTH 13.2 % (11.5-14.5); WHITE BLOOD COUNT 8.4 10^3/ul (4.5-11.0)
[2017-05-22 21:53] LABS: INR 1.01 (0.93-1.08); PARTIAL THROMBOPLASTIN TIME 27.7 Seconds (23.7-30.8)
[2017-05-22 21:55] LABS: ALB/GLOB RATIO 1.4 (1.1-1.8); ALKALINE PHOSPHATASE 74 U/L (38-126); ALT/SGPT 37 U/L (7-56); AMYLASE 126 U/L (35-125); AST/SGOT 27 U/L (17-59); BILIRUBIN,TOTAL 0.7 mg/dL (0.2-1.3); BLOOD UREA NITROGEN 10 mg/dL (7-21); CALCIUM 9.2 mg/dL (8.4-10.5); CARBON DIOXIDE 25 mmol/L (21-33); CHLORIDE 102 mmol/L (98-107); GFR AFRICAN-AMERICAN > 60; GLUCOSE,RANDOM 82 mg/dL (70-110); LIPASE 230 U/L (23-300); POTASSIUM 3.9 mmol/L (3.6-5.0); SODIUM 139 mmol/L (132-148); TOTAL PROTEIN 7.9 g/dL (5.8-8.3)
[2017-05-22 22:16] LABS: TROPONIN I < 0.01 ng/mL
--- NOTE | 2017-05-23 00:15 | CT ---
EXAM: CT Abdomen and Pelvis Without Intravenous Contrast CLINICAL HISTORY: 36 years old, male; Pain; Abdominal pain; Acute; Additional info: Abd pain TECHNIQUE: Axial computed tomography images of the abdomen and pelvis without intravenous contrast. All CT scans at this facility use one or more dose reduction techniques, viz.: automated exposure control; ma/kV adjustment per patient size (including targeted exams where dose is matched to indication; i.e. head); or iterative reconstruction technique. Coronal and sagittal reformatted images were created and reviewed. COMPARISON: No relevant prior studies available. FINDINGS: Limitations: Lack of intravenous contrast. Lower thorax: Minimal atelectasis. ABDOMEN: Liver: Unremarkable. Gallbladder and bile ducts: No calcified stones. No ductal dilation. Pancreas: Unremarkable. No ductal dilation. Spleen: No splenomegaly. Adrenals: No mass. Kidneys and ureters: No renal calculi. No hydronephrosis. Stomach and bowel: No definite mural thickening. No obstruction. Appendix: No definite findings to suggest acute appendicitis. PELVIS: Bladder: Unremarkable. No stones. Reproductive: Unremarkable as visualized. ABDOMEN and PELVIS: Intraperitoneal space: No significant fluid collection. No free air. Bones/joints: No acute fracture. Soft tissues: Unremarkable. Vasculature: Unremarkable. No aneurysm. Lymph nodes: No pathologically enlarged lymph nodes. IMPRESSION: 1. No definite acute intraabdominal abnormality.
[2017-05-23 01:32] LABS: URINE BILIRUBIN NEGATIVE (NEGATIVE); URINE BLOOD NEGATIVE (NEGATIVE); URINE GLUCOSE (UA) NEGATIVE (NEGATIVE); URINE KETONE TRACE mg/dL (NEGATIVE); URINE LEUKOCYTE ESTERASE NEGATIVE Leu/uL (NEGATIVE); URINE PROTEIN NEGATIVE mg/dL (<30 mg/dL)
[2017-05-23 01:39] LABS: URINE APPEARANCE CLEAR (CLEAR); URINE COLOR YELLOW (YELLOW)
[2017-05-23] MEDS ORDERED: HYDROmorphone 2 mg/ml ISec IVP STA ×2 (03:53→23:11)
[2017-05-23] MEDS ORDERED: DiphenhydrAMINE 50 mg/ml Inj IVP ONE (05:16)
[2017-05-23] MEDS ORDERED: Albuterol-Ipratrop 3 mg / 0.5 (3 ml) UD IH STA (05:28)
[2017-05-23] MEDS ORDERED: guaiFENesin-Codeine 100-10mg/5ml Syrup (5 ml) UD PO SCH (06:30)
[2017-05-23] MEDS ORDERED: guaiFENesin DM 200 mg-20 mg/10 ml UD PO PRN (06:57)
--- NOTE | 2017-05-23 07:06 | CP.PCM.PN ---
Subjective - Date & Time of Evaluation Date of Evaluation: 05/23/17 Time of Evaluation: 07:01 - Subjective Subjective: 36 M being admitted with vomiting related with cough, accompanied with abdominal pain, patient does not have any wheezing, not sob, abd CT negative for any acute finding, prior chest ct negative for any mechanical airway problem to contribute cough. Cough happens as soon as patient lay down, had no post nasal discharge on exam. Likely form GERD. Currently symptoms controlled with zofran, dilaudid, protonix. Plan PPI, zofran, ivf, cough suppression, these meds even at discharge, if symptoms persist could have out patient gi eval/pulmonary eval after tial for few wks. Objective - Vital Signs/Intake and Output Vital Signs (last 24 hours): Temp Pulse Resp BP Pulse Ox 98.0 F 72 18 128/84 99 05/23/17 00:55 05/23/17 06:16 05/23/17 06:16 05/23/17 06:16 05/23/17 06:16 - Medications Medications: Current Medications Guaifenesin/Dextromethorphan (Robitussin Dm) 10 ml PO Q4H PRN PRN Reason: Cough Heparin Sodium (Porcine) (Heparin) 5,000 units SC Q12 JEREMIAS PRN Reason: Protocol Sodium Chloride (Sodium Chloride 0.9%) 1,000 mls @ 100 mls/hr IV .Q10H STA Stop: 05/23/17 07:25 Last Admin: 05/22/17 21:51 Dose: 100 mls/hr Sodium Chloride (Sodium Chloride 0.9%) 1,000 mls @ 125 mls/hr IV .Q8H [facility] Ondansetron HCl (Zofran Inj) 4 mg IVP Q4H PRN PRN Reason: Nausea/Vomiting Pantoprazole Sodium (Protonix Ec Tab) 40 mg PO 0600 [facility] - Labs Labs: PT 10.9 Seconds (9.9-11.8) 05/22/17 21:19 INR 1.01 (0.93-1.08) 05/22/17 21:19 APTT 27.7 Seconds (23.7-30.8) 05/22/17 21:19
--- NOTE | 2017-05-23 07:11 | RAD ---
HISTORY: fall COMPARISON: Chest radiographs 02/10/2017. TECHNIQUE: Chest PA and lateral FINDINGS: LUNGS: No active pulmonary disease. PLEURA: No significant pleural effusion identified. No pneumothorax apparent. CARDIOVASCULAR: Normal. OSSEOUS STRUCTURES: No significant abnormalities. VISUALIZED UPPER ABDOMEN: Normal. OTHER FINDINGS: None. IMPRESSION: No acute cardiopulmonary disease or significant interval change identified.
[2017-05-23 10:24] LABS: HEMATOCRIT 42.5 % (42.0-52.0); MEAN CELL VOLUME 89.7 fl (80.0-105.0); MEAN CORPUSCULAR HEMOGLOBIN 30.4 pg (25.0-35.0); MEAN CORPUSCULAR HGB CONC 33.9 g/dl (31.0-37.0); MEAN PLATELET VOLUME 10.5 fl (7.0-11.0); RED CELL DISTRIBUTION WIDTH 13.4 % (11.5-14.5); WHITE BLOOD COUNT 7.9 10^3/ul (4.5-11.0)
[2017-05-23 10:30] LABS: BLOOD UREA NITROGEN 9 mg/dL (7-21); CALCIUM 8.8 mg/dL (8.4-10.5); CARBON DIOXIDE 30 mmol/L (21-33); CHLORIDE 102 mmol/L (98-107); GFR AFRICAN-AMERICAN > 60; GLUCOSE,RANDOM 103 mg/dL (70-110); POTASSIUM 3.8 mmol/L (3.6-5.0); SODIUM 141 mmol/L (132-148)
[2017-05-23 11:06] VITALS: BMI 25.9
--- NOTE | 2017-05-23 11:10 | CARD ---
APPROVED REPORT EKG Measurement Heart [id number] <Conclusion> Normal sinus rhythm Early repolarization Normal ECG
--- NOTE | 2017-05-23 11:46 | CP.PCM.HP ---
History of Present Illness - History of Present Illness History of Present Illness: Que Reyes PGY1 - Internal Medicine H&P CC: CP, cough, abdominal pain, vomiting HPI: 36yo M with no significant PMH, but many frequent visits to the ER for various complaints, though never admitted for inpatient management. Today, he presents complaining of CP associated with SOB, cough, abdominal pain, vomiting. Symptoms started with cough, progressed to post-tussive emesis with nonradiating, reproducible CP and abdominal pain. Patient reports that cough is worsened by lying down. He also reports that in a prior ED visit, he was given an albuterol inhaler, which he has been using to no avail. 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 He denies F/C, nausea, diarrhea, constipation, MAN, nasal congestion, rhinorrhea, ocular pruritis, otalgia, recent illness, recent travel. PMH: None PSH: None Soc: 40pyh, current 2PPD smoker. Denies EtOH. Denies illicits. Meds: Unknown rescue inhaler Fhx: Unknown open heart surgery in mother All: NKDA ROS: Constitutional: pt denies fever, chills, generalized weakness ENT: pt denies dysphagia, otalgia, hearing deficit, rhinorrhea Eyes: pt denies sudden loss of vision, diplopia, blurred vision MSK: pt denies muscle stiffness, joint pain, extremity cramping Cardio: +CP, SOB pt denies heart murmur Pulm: +Cough pt denies hemoptysis, wheeze GI: +Vomiting (posttussive), abdominal pain pt denies loss of appetite, constipation, melena, n/d : pt denies burning on urination, urinary frequency, hematuria, urinary urgency Neuro: pt denies paresis, paresthesia, dizziness, man, numbness, tingling Derm: pt denies skin changes, lesions, nail changes Endo: pt denies intolerance to heat/cold, diaphoresis, night sweats, polydipsia Psych: pt denies anxiety, depression, mood changes Present on Admission - Present on Admission Any Indicators Present on Admission: No Past Patient History - Infectious Disease Hx of Infectious Diseases: None - Past Social History Smoking Status: Current Some Days Smoker - CARDIAC Hx Cardiac Disorders: No - PULMONARY Hx Asthma: Yes - NEUROLOGICAL Hx Migraine: Yes - HEENT Hx HEENT Problems: No - RENAL Hx Chronic Kidney Disease: No - ENDOCRINE/METABOLIC Hx Endocrine Disorders: No - HEMATOLOGICAL/ONCOLOGICAL Hx Blood Disorders: No - INTEGUMENTARY Hx Dermatological Problems: No - MUSCULOSKELETAL/RHEUMATOLOGICAL Hx Falls: No - GASTROINTESTINAL Hx Gastroesophageal Reflux: Yes - PSYCHIATRIC Hx Anxiety: Yes - SURGICAL HISTORY Hx Surgeries: Yes (r knee surgery) - ANESTHESIA Hx Anesthesia: Yes Hx Anesthesia Reactions: No Hx Malignant Hyperthermia: No Meds Allergies/Adverse Reactions: Allergies Allergy/AdvReac Type Severity Reaction Status Date / Time No Known Allergies Allergy Verified 05/15/17 21:14 Physical Exam - Constitutional Appears: Non-toxic Additional comments: In mild acute distress - Head Exam Head Exam: ATRAUMATIC, NORMOCEPHALIC - Eye Exam Eye Exam: EOMI, Normal appearance, PERRL - ENT Exam Additional comments: Mild erythema posterior oropharynx - Neck Exam Neck exam: Negative for: Lymphadenopathy, Meningismus, Thyromegaly - Respiratory Exam Respiratory Exam: Chest Wall Tenderness, Clear to Auscultation Bilateral. absent: Rales, Rhonchi, Wheezes, Respiratory Distress - Cardiovascular Exam Cardiovascular Exam: RRR, +S1, +S2. absent: Bradycardia, Tachycardia - GI/Abdominal Exam GI & Abdominal Exam: Normal Bowel Sounds, Soft, Tenderness (minimal, diffuse). absent: Distended, Firm, Guarding, Rebound, Rigid - Extremities Exam Extremities exam: Negative for: calf tenderness, pedal edema - Back Exam Back exam: absent: CVA tenderness (L), CVA tenderness (R) - Neurological Exam Neurological exam: Alert, CN II-XII Intact, Oriented x3 - Psychiatric Exam Psychiatric exam: Anxious, Normal Affect - Skin Skin Exam: Dry, Intact, Normal Color Results - Vital Signs Recent Vital Signs: Last Vital Signs Temp 97.7 F 05/23/17 10:55 Pulse 54 L 05/23/17 10:55 Resp 20 05/23/17 10:55 BP 107/68 05/23/17 10:55 Pulse Ox 97 05/23/17 08:23 - Labs Result Diagrams: 05/23/17 10:00 05/23/17 10:00 Labs: Laboratory Results - last 24 hr 05/23/17 05/23/17 10:00 10:00 WBC 7.9 RBC 4.74 Hgb 14.4 Hct 42.5 MCV 89.7 MCH 30.4 MCHC 33.9 RDW 13.4 Plt Count 172 MPV 10.5 Sodium 141 Potassium 3.8 Chloride 102 Carbon Dioxide 30 Anion Gap 13 BUN 9 Creatinine 0.9 Est GFR ( Amer) > 60 Est GFR (Non-Af Amer) > 60 Random Glucose 103 Calcium 8.8 Assessment & Plan - Assessment and Plan (Free Text) Assessment: 36 yo M with no significant PMH, extensive smoking history, presents with cough , postussive emesis, CP, abdominal pain. Plan: 1. Cough and CP - Patient is currently not SOB, no wheezing on exam. Cough is positional, likely 2/2 GERD, less likely 2/2 mechanical airway problem vs post-nasal drip vs asthma exacerbation - Trop negative x1, EKG shows NSR, no ST-T wave abnormalities; pending official read - CXR in ER shows no active pulmonary disease, and no significant interval change - Received one duonebs treatment with no improvement in his symptoms - No other allergic symptoms, history of allergies, no PND noted on exam - Prior chest CT negative for any mechanical airway obstruction - Start Protonix 40mg QD for likely GERD - Start Robitussin DM Q6h JEREMIAS for cough suppression 2. Posttussive emesis and abdominal pain - Abdominal pain most likely 2/2 cough and posttussive emesis - CT abd pelv shows no acute intraabdominal pathology - Start Zofran 4mg Q4 PRN for nausea - IVF NS@120cc/hr to maintain hydration - Cough suppression, as above - Monitor for improvement, consider GI consult, ENT consult if no improvement GI/DVT Ppx Patient seen, discussed, and reviewed with attending
--- NOTE | 2017-05-23 13:31 | CT ---
PROCEDURE: CT Chest without contrast HISTORY: r/o pna COMPARISON: None. TECHNIQUE: Contiguous axial images were obtained through the chest without intravenous contrast enhancement. Sagittal and coronal reconstructions were performed. Radiation dose (DLP): 274 mGy-cm. This CT exam was performed using one or more of the following dose reduction techniques: Automated exposure control, adjustment of the mA and/or kV according to patient size, and/or use of iterative reconstruction technique. FINDINGS: LUNGS: Clear lungs. Visualized airway clear. Minimal linear atelectasis of both lung bases right greater than left. MEDIASTINUM: Unremarkable thoracic aorta. No aneurysm. Normal sized heart. Main pulmonary artery unremarkable. No vascular congestion. No lymphadenopathy. PLEURA: No pleural fluid. No pneumothorax. BONES: No fracture. No destructive lesion. UPPER ABDOMEN: Grossly unremarkable. OTHER FINDINGS: None. IMPRESSION: Unremarkable non-contrast enhanced CT of the chest.
[2017-05-23] MEDS: Albuterol-Ipratrop 3 mg / 0.5 (3 ml) UD IH SCH ×2 (13:43→19:47)
--- NOTE | 2017-05-23 13:55 | CP.PCM.CON ---
<Ava Desir - Last Filed: 05/23/17 13:53> History of Present Illness - History of Present Illness History of Present Illness: Seen and examined at the outside earlier this morning, the chart was reviewed. Request for GI consult is for suspected GERD HPI: This is a 36-year-old male with past medical history asthma and migraine, comes to the emergency room complaining of chest pain that started yesterday morning. The patient associates pain with coughing and vomiting. The patient had taken some [id number] pain medication at home and vomited this afterwards. In review of his chart the patient was noted to have been in the emergency room with same complaints, most recent was on 05/15/2017 for complaints of atypical chest pain, the patient has not had any GI outpatient follow-up. On admission he had a CAT scan of abdomen and pelvis with no contrast that was negative for acute abdominal findings. He also had a CT scan of the chest thatast medical history asthmaMigrainewas negative for acute findings. The patient states that this pain has been ongoing for 2 months. Denies any hematemesis, change in bowel habits, melena or bright red blood per rectum. No complaints of dysphagia or loss of appetite. PMH: asthma, migraine PSH: None Social history: current day smoker, smokes 2 packs per day,denies EtOH, deniesillicits drugs. Meds: reviewed as per Aime Family history: noncontributory at this time Allergies: NKDA ROS: Systems reviewed with positive finding see HPI Past Patient History - Infectious Disease Hx of Infectious Diseases: None - Past Social History Smoking Status: Current Some Days Smoker - CARDIAC Hx Cardiac Disorders: No - PULMONARY Hx Asthma: Yes - NEUROLOGICAL Hx Migraine: Yes - HEENT Hx HEENT Problems: No - RENAL Hx Chronic Kidney Disease: No - ENDOCRINE/METABOLIC Hx Endocrine Disorders: No - HEMATOLOGICAL/ONCOLOGICAL Hx Blood Disorders: No - INTEGUMENTARY Hx Dermatological Problems: No - MUSCULOSKELETAL/RHEUMATOLOGICAL Hx Falls: No - GASTROINTESTINAL Hx Gastroesophageal Reflux: Yes - PSYCHIATRIC Hx Anxiety: Yes - SURGICAL HISTORY Hx Surgeries: Yes (r knee surgery) - ANESTHESIA Hx Anesthesia: Yes Hx Anesthesia Reactions: No Hx Malignant Hyperthermia: No Meds Allergies/Adverse Reactions: Allergies Allergy/AdvReac Type Severity Reaction Status Date / Time No Known Allergies Allergy Verified 05/15/17 21:14 - Medications Medications: Current Medications Albuterol/Ipratropium (Duoneb 3 Mg/0.5 Mg (3 Ml) Ud) 3 ml IH [id number] JEREMIAS Guaifenesin/Dextromethorphan (Robitussin Dm) 10 ml PO Q4H PRN PRN Reason: Cough Heparin Sodium (Porcine) (Heparin) 5,000 units SC Q12 JEREMIAS PRN Reason: Protocol Last Admin: 05/23/17 09:20 Dose: 5,000 units Sodium Chloride (Sodium Chloride 0.9%) 1,000 mls @ 125 mls/hr IV .Q8H JEREMIAS Ondansetron HCl (Zofran Inj) 4 mg IVP Q4H PRN PRN Reason: Nausea/Vomiting Pantoprazole Sodium (Protonix Ec Tab) 40 mg PO 0600 [facility] Physical Exam - Constitutional Appears: Cachectic - Head Exam Head Exam: NORMOCEPHALIC - Eye Exam Eye Exam: Normal appearance. absent: Scleral icterus - ENT Exam ENT Exam: Mucous Membranes Moist - Neck Exam Neck exam: Positive for: Normal Inspection - Respiratory Exam Respiratory Exam: Decreased Breath Sounds, NORMAL BREATHING PATTERN. absent: Rales, Wheezes, Respiratory Distress - Cardiovascular Exam Cardiovascular Exam: +S2 - GI/Abdominal Exam GI & Abdominal Exam: Normal Bowel Sounds, Soft, Tenderness (epigastric). absent : Distended, Guarding, Organomegaly, Rebound - Extremities Exam Extremities exam: Positive for: pedal pulses present. Negative for: calf tenderness, pedal edema - Neurological Exam Neurological exam: Alert, Oriented x3 - Skin Skin Exam: Dry, Warm Results - Vital Signs Recent Vital Signs: Last Vital Signs Temp 97.7 F 05/23/17 10:55 Pulse 54 L 05/23/17 10:55 Resp 20 05/23/17 10:55 BP 107/68 05/23/17 10:55 Pulse Ox 97 05/23/17 08:23 - Labs Result Diagrams: 05/23/17 10:00 05/23/17 10:00 Labs: Laboratory Results - last 24 hr 05/23/17 05/23/17 05/23/17 10:00 10:00 11:20 WBC 7.9 RBC 4.74 Hgb 14.4 Hct 42.5 MCV 89.7 MCH 30.4 MCHC 33.9 RDW 13.4 Plt Count 172 MPV 10.5 Sodium 141 Potassium 3.8 Chloride 102 Carbon Dioxide 30 Anion Gap 13 BUN 9 Creatinine 0.9 Est GFR ( Amer) > 60 Est GFR (Non-Af Amer) > 60 Random Glucose 103 Calcium 8.8 Urine Opiates Screen Positive H Urine Methadone Screen Negative Ur Barbiturates Screen Negative Ur Phencyclidine Scrn Negative Ur Amphetamines Screen Negative U Benzodiazepines Scrn Negative U Oth Cocaine Metabols Negative U Cannabinoids Screen Negative Assessment & Plan - Assessment and Plan (Free Text) Assessment: Assessment: Atypical chest pain/abdominal pain, could be secondary to coughing and vomiting , rule out any peptic ulcer disease or gallbladder pathology Asthma Plan: Request for abdominal ultrasound clear liquid diet Continue PPI Plan for EGD tomorrow, nothing by mouth after midnight Pain management DVT prophylaxis, on heparin subcutaneous Check labs in a.m.: CBC, CMP and PT/INR Plan discussed with medical team and patient and his . Thank you for this consult and for allowing us to participate in your patient's care, further recommendations based upon clinical course. Seen and discussed with Dr. Bob. <Erika Bob V - Last Filed: 05/23/17 23:25> Meds - Medications Medications: Current Medications Albuterol/Ipratropium (Duoneb 3 Mg/0.5 Mg (3 Ml) Ud) 3 ml IH [id number] [facility] Last Admin: 05/23/17 19:47 Dose: 3 ml Guaifenesin/Dextromethorphan (Robitussin Dm) 10 ml PO Q4H PRN PRN Reason: Cough Heparin Sodium (Porcine) (Heparin) 5,000 units SC Q12 [facility] PRN Reason: Protocol Last Admin: 05/23/17 21:31 Dose: 5,000 units Sodium Chloride (Sodium Chloride 0.9%) 1,000 mls @ 125 mls/hr IV .Q8H [facility] Nicotine (Nicoderm Cq) 1 patch TD DAILY [facility] Last Admin: 05/23/17 14:44 Dose: 1 patch Ondansetron HCl (Zofran Inj) 4 mg IVP Q4H PRN PRN Reason: Nausea/Vomiting Pantoprazole Sodium (Protonix Ec Tab) 40 mg PO 0600 [facility] Results - Vital Signs Recent Vital Signs: Last Vital Signs Temp 98 F 05/23/17 16:00 Pulse 55 L 05/23/17 16:00 Resp 20 09/14/17 16:00 BP 113/72 05/23/17 16:00 Pulse Ox 99 05/23/17 16:00 - Labs Result Diagrams: 05/23/17 10:00 05/23/17 10:00 Attending/Attestation - Attestation I have personally seen and examined this patient.: Yes I have fully participated in the care of the patient.: Yes I have reviewed all pertinent clinical information: Yes Notes (Text): This is an addendum to GI progress report dictated by Ava Desir APN.The patient was seen and examined earlier. Medical records, lab studies, imagings were reviewed. Last 24 hours events reviewed. Agreed with the above treatment plan as outlined in Ava Desir NP's notes the with the addition of the following patient still complains of discomfort in the epigastric area on examination mild tenderness in the epigastric area noticed Imaging studies noticed and requested a sonogram Scheduled for EGD 05/23/17 23:24
--- NOTE | 2017-05-23 15:37 | US ---
HISTORY: epigastric pain COMPARISON: Abdomen pelvis CT without contrast 05/22/2017. TECHNIQUE: Sonographic evaluation of the abdomen. FINDINGS: LIVER: Measures 14.7 cm. Normal echogenicity of the liver parenchyma. No mass. No intrahepatic bile duct dilatation. GALLBLADDER: Unremarkable. No gallstones. COMMON BILE DUCT: Measures 1.8 mm. No stones. No dilatation. PANCREAS: Completely obscured by overlying bowel or stomach gas. RIGHT KIDNEY: Measures 13.8 acm. Normal echogenicity. No calculus, mass, or hydronephrosis. LEFT KIDNEY: Measures 13.6cm. Normal echogenicity. No calculus, mass, or hydronephrosis. SPLEEN: Normal in size and contour. No mass. AORTA: No aneurysmal dilatation. IVC: Unremarkable. OTHER FINDINGS: None. IMPRESSION: The pancreas completely obscured by overlying bowel or stomach gas with remainder of the examination unremarkable, as discussed above.
[2017-05-24] MEDS: Albuterol-Ipratrop 3 mg / 0.5 (3 ml) UD IH SCH ×4 (01:34→21:41)
[2017-05-24] MEDS: Pantoprazole 40 mg EC Tab PO SCH (04:59)
[2017-05-24] MEDS ORDERED: Pantoprazole 40 mg EC Tab PO SCH (06:00)
[2017-05-24 07:30] LABS: BASO # 0.03 K/mm3 (0.0-2.0); BASO % 0.5 % (0.0-3.0); EOS # 0.3 (0.0-0.7); EOS % 4.4 % (1.5-5.0); GRAN # 2.43 (1.4-6.5); GRAN % 41.4 % (50.0-68.0); HEMATOCRIT 40.9 % (42.0-52.0); LYMPH # 2.4 (1.2-3.4); LYMPH % 40.4 % (22.0-35.0); MEAN CELL VOLUME 90.5 fl (80.0-105.0); MEAN CORPUSCULAR HEMOGLOBIN 29.6 pg (25.0-35.0); MEAN CORPUSCULAR HGB CONC 32.8 g/dl (31.0-37.0); MEAN PLATELET VOLUME 10.9 fl (7.0-11.0); MONO # 0.8 (0.1-0.6); MONO % 13.3 % (1.0-6.0); RED CELL DISTRIBUTION WIDTH 13.5 % (11.5-14.5); WHITE BLOOD COUNT 5.9 10^3/ul (4.5-11.0)
[2017-05-24 07:37] LABS: INR 0.99 (0.93-1.08)
[2017-05-24 07:42] LABS: ALB/GLOB RATIO 1.3 (1.1-1.8); ALKALINE PHOSPHATASE 63 U/L (38-126); ALT/SGPT 37 U/L (7-56); AST/SGOT 22 U/L (17-59); BILIRUBIN,TOTAL 0.4 mg/dL (0.2-1.3); BLOOD UREA NITROGEN 12 mg/dL (7-21); CALCIUM 8.6 mg/dL (8.4-10.5); CARBON DIOXIDE 27 mmol/L (21-33); CHLORIDE 106 mmol/L (98-107); GFR AFRICAN-AMERICAN > 60; GLUCOSE,RANDOM 84 mg/dL (70-110); SODIUM 141 mmol/L (132-148); TOTAL PROTEIN 6.1 g/dL (5.8-8.3)
[2017-05-24] MEDS: Sodium Chloride 0.9% 1,000 ML IV SCH ×2 (09:20→16:48)
[2017-05-24] MEDS ORDERED: Propofol 10 mg/ml Inj (20 ML) ONE (15:22)
--- NOTE | 2017-05-24 18:20 | CP.PCM.DIS ---
<Viviana Bravo - Last Filed: 05/25/17 17:13> Provider - Provider Date of Admission: 05/23/17 14:59 Attending physician: Lilo Franklin MD Primary care physician: Dai Abbott MD Consults: Dr. Erika Bob Time Spent in preparation of Discharge (in minutes): 33 Hospital Course - Lab Results Lab Results: Most Recent Lab Values WBC 5.9 10^3/ul (4.5-11.0) D 05/24/17 06:40 RBC 4.52 10^6/uL (3.5-6.1) 05/24/17 06:40 Hgb 13.4 g/dL (14.0-18.0) L 05/24/17 06:40 Hct 40.9 % (42.0-52.0) L 05/24/17 06:40 MCV 90.5 fl (80.0-105.0) 05/24/17 06:40 MCH 29.6 pg (25.0-35.0) 05/24/17 06:40 MCHC 32.8 g/dl (31.0-37.0) 05/24/17 06:40 RDW 13.5 % (11.5-14.5) 05/24/17 06:40 Plt Count 158 10^3/uL (120.0-450.0) 05/24/17 06:40 MPV 10.9 fl (7.0-11.0) 05/24/17 06:40 Gran % 41.4 % (50.0-68.0) L 05/24/17 06:40 Lymph % (Auto) 40.4 % (22.0-35.0) H 05/24/17 06:40 [place] % (Auto) 13.3 % (1.0-6.0) H 05/24/17 06:40 Eos % (Auto) 4.4 % (1.5-5.0) 05/24/17 06:40 Baso % (Auto) 0.5 % (0.0-3.0) 05/24/17 06:40 Gran # 2.43 (1.4-6.5) 05/24/17 06:40 Lymph # 2.4 (1.2-3.4) 05/24/17 06:40 [place] # 0.8 (0.1-0.6) H 05/24/17 06:40 Eos # 0.3 (0.0-0.7) 05/24/17 06:40 Baso # 0.03 K/mm3 (0.0-2.0) 05/24/17 06:40 PT 10.7 Seconds (9.9-11.8) 05/24/17 06:40 INR 0.99 (0.93-1.08) 05/24/17 06:40 APTT 27.7 Seconds (23.7-30.8) 05/22/17 21:19 Sodium 141 mmol/L (132-148) 05/24/17 06:40 Potassium 4.0 mmol/L (3.6-5.0) 05/24/17 06:40 Chloride 106 mmol/L (98-107) 05/24/17 06:40 Carbon Dioxide 27 mmol/L (21-33) 05/24/17 06:40 Anion Gap 12 (10-20) 05/24/17 06:40 BUN 12 mg/dL (7-21) 05/24/17 06:40 Creatinine 0.9 mg/dL (0.5-1.4) 05/24/17 06:40 Est GFR ( Amer) > 60 05/24/17 06:40 Est GFR (Non-Af Amer) > 60 05/24/17 06:40 Random Glucose 84 mg/dL (70-110) 05/24/17 06:40 Calcium 8.6 mg/dL (8.4-10.5) 05/24/17 06:40 Total Bilirubin 0.4 mg/dL (0.2-1.3) 05/24/17 06:40 AST 22 U/L (17-59) 05/24/17 06:40 ALT 37 U/L (7-56) 05/24/17 06:40 Alkaline Phosphatase 63 U/L (38-126) 05/24/17 06:40 Lactate Dehydrogenase 537 U/L (333-699) 05/22/17 21:19 Total Creatine Kinase 84 U/L (35-230) 05/22/17 21:19 Troponin I < 0.01 ng/mL 05/22/17 21:19 Total Protein 6.1 g/dL (5.8-8.3) 05/24/17 06:40 Albumin 3.4 g/dL (3.0-4.8) 05/24/17 06:40 Globulin 2.7 gm/dL 05/24/17 06:40 Albumin/Globulin Ratio 1.3 (1.1-1.8) 05/24/17 06:40 Amylase 126 U/L (35-125) H 05/22/17 21:19 Lipase 230 U/L (23-300) 05/22/17 21:19 Urine Color Yellow (YELLOW) 05/23/17 00:57 Urine Appearance Clear (CLEAR) 05/23/17 00:57 Urine pH 6.0 (4.7-8.0) 05/23/17 00:57 Ur Specific [place] 1.025 (1.005-1.035) 05/23/17 00:57 Urine Protein Negative mg/dL (<30 mg/dL) 05/23/17 00:57 Urine Glucose (UA) Negative mg/dL (NEGATIVE) 05/23/17 00:57 Urine Ketones Trace mg/dL (NEGATIVE) H 05/23/17 00:57 Urine Blood Negative (NEGATIVE) 05/23/17 00:57 Urine Nitrate Negative (NEGATIVE) 05/23/17 00:57 Urine Bilirubin Negative (NEGATIVE) 05/23/17 00:57 Urine Urobilinogen 1.0 E.U./dL (<1 E.U./dL) H 05/23/17 00:57 Ur Leukocyte Esterase Negative Ruslan/uL (NEGATIVE) 05/23/17 00:57 Urine Opiates Screen Positive (NEGATIVE) H 05/23/17 11:20 Urine Methadone Screen Negative (NEGATIVE) 05/23/17 11:20 Ur Barbiturates Screen Negative (NEGATIVE) 05/23/17 11:20 Ur Phencyclidine Scrn Negative (NEGATIVE) 05/23/17 11:20 Ur Amphetamines Screen Negative (NEGATIVE) 05/23/17 11:20 U Benzodiazepines Scrn Negative (NEGATIVE) 05/23/17 11:20 U Oth Cocaine Metabols Negative (NEGATIVE) 05/23/17 11:20 U Cannabinoids Screen Negative (NEGATIVE) 05/23/17 11:20 - Hospital Course Hospital Course: 36 year old male with a past medical history of asthma who presents with 2 months of worsening reflux symptoms, including morning cough, night-time awakenings, and reported hematemesis . Patient underwent EGD that showed chronic gastritis and a hypophargeal lesion. He also underwent a non-contrast CT of the chest and an abdominal US that were both grossly unremarkable. The patient was referred for ENT evaluation given the hypopharygeal lesion observed during the EGD. He was not able to discharged on this day (05/24) due to acute shortness of breath that resolved spontaneously. He will be able to leave tomorrow with the below instructions. - Date & Time of H&P Date of H&P: 05/24/17 Time of H&P: 18:20 Discharge Exam - Head Exam Head Exam: ATRAUMATIC, NORMOCEPHALIC - Eye Exam Eye Exam: EOMI, Normal appearance Additional comments: some lid lag on left eyelid - ENT Exam ENT Exam: Mucous Membranes Moist, Normal Oropharynx - Neck Exam Neck exam: Normal Inspection - Respiratory Exam Respiratory Exam: Clear to PA & Lateral, NORMAL BREATHING PATTERN. absent: Respiratory Distress - Cardiovascular Exam Cardiovascular Exam: RRR, +S1, +S2 - GI/Abdominal Exam GI & Abdominal Exam: Normal Bowel Sounds. absent: Pulsatile Mass, Rebound Additional comments: epigastric tenderness - Extremities Exam Extremities exam: normal capillary refill, normal inspection, pedal edema - Back Exam Back exam: NORMAL INSPECTION. absent: CVA tenderness (L), CVA tenderness (R) - Neurological Exam Neurological exam: Alert, CN II-XII Intact, Oriented x3 - Psychiatric Exam Psychiatric exam: Normal Affect, Normal Mood - Skin Skin Exam: Dry, Intact, Normal Color, Warm Discharge Plan - Discharge Medications Prescriptions: Albuterol HFA [Ventolin HFA 90 mcg/actuation (8 g)] 0.09 mg IH QID PRN #100 puff PRN Reason: Cough Nicotine 7 mg/24 hr [Nicoderm CQ] 1 patch TD DAILY #30 patch Pantoprazole [Protonix EC Tab] 40 mg PO 0600 #30 ect - Follow Up Plan Condition: GOOD Disposition: HOME/ ROUTINE Instructions: Chest Pain (DC), Non-pharmacological Pain Management Therapies for Adults (GEN) Additional Instructions: - Please take the the pantoprazole daily and use inhaler as prescribed if needed - Eat puree diet for now until you see the ENT - In case of another episode of respiratory distress go to [facility] ER and show them the report of your scope - Visit ENT MD or clinic for evaluation of the polyp - Please go to the nearest emergency room if you experience chest pain, fever or chills Thank you Farooq August PGY1 Dr. Franklin, Attending Physician Referrals: Dai Abbott MD [Primary Care Provider] - <Lilo Franklin - Last Filed: 05/26/17 13:11> Provider - Provider Date of Admission: 05/23/17 14:59 Attending physician: Lilo Franklin MD Primary care physician: Dai Abbott MD Time Spent in preparation of Discharge (in minutes): 35 Hospital Course - Lab Results Lab Results: Most Recent Lab Values WBC 7.0 10^3/ul (4.5-11.0) 05/25/17 07:33 RBC 4.75 10^6/uL (3.5-6.1) 05/25/17 07:33 Hgb 14.1 g/dL (14.0-18.0) 05/25/17 07:33 Hct 42.1 % (42.0-52.0) 05/25/17 07:33 MCV 88.6 fl (80.0-105.0) 05/25/17 07:33 MCH 29.7 pg (25.0-35.0) 05/25/17 07:33 MCHC 33.5 g/dl (31.0-37.0) 05/25/17 07:33 RDW 13.2 % (11.5-14.5) 05/25/17 07:33 Plt Count 176 10^3/uL (120.0-450.0) 05/25/17 07:33 MPV 10.4 fl (7.0-11.0) 05/25/17 07:33 Gran % 60.3 % (50.0-68.0) 05/25/17 07:33 Lymph % (Auto) 26.6 % (22.0-35.0) 05/25/17 07:33 [place] % (Auto) 9.8 % (1.0-6.0) H 05/25/17 07:33 Eos % (Auto) 2.9 % (1.5-5.0) 05/25/17 07:33 Baso % (Auto) 0.4 % (0.0-3.0) 05/25/17 07:33 Gran # 4.19 (1.4-6.5) 05/25/17 07:33 Lymph # 1.9 (1.2-3.4) 05/25/17 07:33 [place] # 0.7 (0.1-0.6) H 05/25/17 07:33 Eos # 0.2 (0.0-0.7) 05/25/17 07:33 Baso # 0.03 K/mm3 (0.0-2.0) 05/25/17 07:33 PT 10.7 Seconds (9.9-11.8) 05/24/17 06:40 INR 0.99 (0.93-1.08) 05/24/17 06:40 APTT 27.7 Seconds (23.7-30.8) 05/22/17 21:19 Sodium 140 mmol/L (132-148) 05/25/17 07:32 Potassium 3.7 mmol/L (3.6-5.0) 05/25/17 07:32 Chloride 102 mmol/L (95-110) 05/25/17 07:32 Carbon Dioxide 28 mmol/L (21-33) 05/25/17 07:32 Anion Gap 14 (10-20) 05/25/17 07:32 BUN 9 mg/dL (7-21) 05/25/17 07:32 Creatinine 0.8 mg/dL (0.5-1.4) 05/25/17 07:32 Est GFR ( Amer) > 60 05/25/17 07:32 Est GFR (Non-Af Amer) > 60 05/25/17 07:32 POC Glucose (mg/dL) 106 mg/dL (65-110) 05/24/17 19:48 Random Glucose 82 mg/dL (70-110) 05/25/17 07:32 Calcium 9.1 mg/dL (8.4-10.5) 05/25/17 07:32 Total Bilirubin 1.2 mg/dL (0.2-1.3) 05/25/17 07:32 AST 31 U/L (17-59) 05/25/17 07:32 ALT 39 U/L (7-56) 05/25/17 07:32 Alkaline Phosphatase 74 U/L (38-126) 05/25/17 07:32 Lactate Dehydrogenase 537 U/L (333-699) 05/22/17 21:19 Total Creatine Kinase 84 U/L (35-230) 05/22/17 21:19 Troponin I < 0.01 ng/mL 05/22/17 21:19 Total Protein 6.9 g/dL (5.8-8.3) 05/25/17 07:32 Albumin 3.9 g/dL (3.0-4.8) 05/25/17 07:32 Globulin 3.0 gm/dL 05/25/17 07:32 Albumin/Globulin Ratio 1.3 (1.1-1.8) 05/25/17 07:32 Amylase 126 U/L (35-125) H 05/22/17 21:19 Lipase 230 U/L (23-300) 05/22/17 21:19 Urine Color Yellow (YELLOW) 05/23/17 00:57 Urine Appearance Clear (CLEAR) 05/23/17 00:57 Urine pH 6.0 (4.7-8.0) 05/23/17 00:57 Ur Specific [place] 1.025 (1.005-1.035) 05/23/17 00:57 Urine Protein Negative mg/dL (<30 mg/dL) 05/23/17 00:57 Urine Glucose (UA) Negative mg/dL (NEGATIVE) 05/23/17 00:57 Urine Ketones Trace mg/dL (NEGATIVE) H 05/23/17 00:57 Urine Blood Negative (NEGATIVE) 05/23/17 00:57 Urine Nitrate Negative (NEGATIVE) 05/23/17 00:57 Urine Bilirubin Negative (NEGATIVE) 05/23/17 00:57 Urine Urobilinogen 1.0 E.U./dL (<1 E.U./dL) H 05/23/17 00:57 Ur Leukocyte Esterase Negative Ruslan/uL (NEGATIVE) 05/23/17 00:57 Urine Opiates Screen Positive (NEGATIVE) H 05/23/17 11:20 Urine Methadone Screen Negative (NEGATIVE) 05/23/17 11:20 Ur Barbiturates Screen Negative (NEGATIVE) 05/23/17 11:20 Ur Phencyclidine Scrn Negative (NEGATIVE) 05/23/17 11:20 Ur Amphetamines Screen Negative (NEGATIVE) 05/23/17 11:20 U Benzodiazepines Scrn Negative (NEGATIVE) 05/23/17 11:20 U Oth Cocaine Metabols Negative (NEGATIVE) 05/23/17 11:20 U Cannabinoids Screen Negative (NEGATIVE) 05/23/17 11:20 Attending/Attestation - Attestation I have personally seen and examined this patient.: Yes I have fully participated in the care of the patient.: Yes I have reviewed all pertinent clinical information, including history, physical exam and plan: Yes Notes (Text): I have seen and examined the patient at bedside. 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 He had multiple visits in ED. GI consult appreciated. Patient was found to have 1 cm hypopharyngeal polyp. ENT was consulted however they cannot see the patient for atleast 2 days so it was decided to send the patient with outpatient ENT followup. Patient was eating dinner and all of a sudden choked on his food. Patient and family got very anxious and nervous so it was decided to keep the patient overnight. Advised patient to have a puree diet.Start protonix. Follow up in [facility] ENT clinic and pmd of choice. Dr Lilo Franklin
--- NOTE | 2017-05-24 20:35 | PCM.RRT ---
<CHANELLE BURT - Last Filed: 05/24/17 20:32> CUFF MAKER Nurse Assessment - Situation Date: 05/24/17 Time CUFF MAKER was called: 19:45 CUFF MAKER Responder Arrival Time: 19:47 CUFF MAKER Location:: [address] [place] [address] Room Number: 366-1 CUFF MAKER Reason for Call: Respiratory Distress CUFF MAKER Called By: RN - IV IV Inserted during CUFF MAKER?: No - Respiratory Oxygen Delivery Method: Nasal Cannula @L/min Oxygen Flow Rate: 4 ( was d/c at end of CUFF MAKER and pt sat 97% on RA) Received Nebulizer Treatments:: No Was the Patient Ventilated with Bag/Mask 100% O2?: No Secretions Suctioned?: No Was the Patient Intubated?: No Was the Patient Placed on a Ventilator?: No - Medication Medications Administered During CUFF MAKER: none - Diagnostic Test Ordered EKG: No Chest X-Ray: No CT Scan: No CPR started during CUFF MAKER?: No - Vital Signs Vital Sign: Rapid Response Vital Sign Blood Pressure 133/84 Pulse Rate 73 Respiratory Rate 22 Temperature 98 F Oxygen Saturation 100 - Finger Stick Blood Glucose Finger Stick Blood Glucose: 106 - Time CUFF MAKER Ended Time CUFF MAKER Ended: 19:55 - Vital Signs at end of CUFF MAKER Vital Signs at end of CUFF MAKER: Rapid Response End Vital Sign Blood Pressure 130/86 Pulse Rate 66 Respiratory Rate 18 Temperature 98.4 F O2 Sat by Pulse Oximetry 98 - Recommendations 5) CUFF MAKER Level of Care Recommendations: Remain in current setting Notifications: Attending Physician, Family or Designated Caregiver I.Reason for CUFF MAKER - A) Acute Change in Patient: (Select all that apply): Staff member or family is worried about patient - Neurological Status (Select all that apply): Alert, Weakness - Respiratory Oxygen Delivery Method: Nasal Cannula @L/min Oxygen Flow Rate: 4 - Constitutional Appears: Well, In Acute Distress - Head Head Exam: NORMAL INSPECTION - Eyes Eye Exam: Normal appearance - Respiratory Exam Respiratory Exam: Accessory Muscle Use, Respiratory Distress. absent: Rales, Wheezes, NORMAL BREATHING PATTERN - Cardiovascular Exam Cardiovascular Exam: RRR, +S1, +S2 - GI/Abdominal Exam GI & Abdominal Exam: Soft, Normal Bowel Sounds. absent: Distended, Tenderness - Neurological Exam Neurological Exam: Alert, Awake, Oriented x3 - Extremities Exam Extremities Exam: Full ROM Plan - Assessment of Findings&Treatment Plan CUFF MAKER was called for patient and team responded STAT. on presentation, pt was stable but grasping his chest and using his accessory resp muscles. pulse ox was in place and sating well on 4L NC. according to nurses and pt's , the pt ate bread from his hospital meal w/ some gingerale and then started feeling sob. pt described it as a tightness in his chest traveling up his throat to the back of the mouth. Pt was originally d/c but plans were changed to monitor pt here tonight and consider sending him to [facility] tomorrow to be seen by ENT. states that this episode happened when he got up to use the bathroom, and may be attributed to a bit of claustrophobia. Vital signs stayed stable throughout the whole CUFF MAKER, and pt did not desat once. At end of CUFF MAKER, pt was removed off NC and continued to sat 97% on RA. Dr. Jae Franklin was present and translation between staff and family member via r d internship [employer]. Pt was stable and awake and alert at end of CUFF MAKER and will remain in room till morning. <Hamida Franklin - Last Filed: 05/25/17 06:42> CUFF MAKER Nurse Assessment - Vital Signs Vital Sign: Rapid Response Vital Sign Blood Pressure 133/84 Pulse Rate 73 Respiratory Rate 22 Temperature 98 F Oxygen Saturation 100 - Vital Signs at end of CUFF MAKER Vital Signs at end of CUFF MAKER: Rapid Response End Vital Sign Blood Pressure 130/86 Pulse Rate 66 Respiratory Rate 18 Temperature 98.4 F O2 Sat by Pulse Oximetry 98 Addendum Addendum: 05/25/17 06:36 pt with oropharyngeal dysphagia , as per nurse pt ate piece of bread with malcolm gregorio and started choking and his lips were blue , but recovered quickly pt is communicating verbaly, rubbing his chest vital signs stable pt was supposed to be discharged to f/u with the [facility] ENT. WILL HOLD THE DISCHARGE FOR TONIGHT.
[2017-05-25] MEDS: Albuterol-Ipratrop 3 mg / 0.5 (3 ml) UD IH SCH ×2 (01:07→07:45)
[2017-05-25] MEDS: Pantoprazole 40 mg EC Tab PO SCH (05:30)
[2017-05-25 07:40] LABS: BASO # 0.03 K/mm3 (0.0-2.0); BASO % 0.4 % (0.0-3.0); EOS # 0.2 (0.0-0.7); EOS % 2.9 % (1.5-5.0); GRAN # 4.19 (1.4-6.5); GRAN % 60.3 % (50.0-68.0); HEMATOCRIT 42.1 % (42.0-52.0); LYMPH # 1.9 (1.2-3.4); LYMPH % 26.6 % (22.0-35.0); MEAN CELL VOLUME 88.6 fl (80.0-105.0); MEAN CORPUSCULAR HEMOGLOBIN 29.7 pg (25.0-35.0); MEAN CORPUSCULAR HGB CONC 33.5 g/dl (31.0-37.0); MEAN PLATELET VOLUME 10.4 fl (7.0-11.0); MONO # 0.7 (0.1-0.6); MONO % 9.8 % (1.0-6.0); RED CELL DISTRIBUTION WIDTH 13.2 % (11.5-14.5)
[2017-05-25 08:01] LABS: ALB/GLOB RATIO 1.3 (1.1-1.8); ALKALINE PHOSPHATASE 74 U/L (38-126); ALT/SGPT 39 U/L (7-56); AST/SGOT 31 U/L (17-59); BILIRUBIN,TOTAL 1.2 mg/dL (0.2-1.3); BLOOD UREA NITROGEN 9 mg/dL (7-21); CALCIUM 9.1 mg/dL (8.4-10.5); CARBON DIOXIDE 28 mmol/L (21-33); CHLORIDE 102 mmol/L (95-110); GFR AFRICAN-AMERICAN > 60; GLUCOSE,RANDOM 82 mg/dL (70-110); POTASSIUM 3.7 mmol/L (3.6-5.0); SODIUM 140 mmol/L (132-148); TOTAL PROTEIN 6.9 g/dL (5.8-8.3)
[2017-05-25 09:14] VITALS: BP 118/83; PULSE 63; RESP 20; TEMP 98.3; O2SAT 100
--- NOTE | 2017-05-25 22:49 | CP.PCM.PN ---
<CHANELLE AUGUST - Last Filed: 05/25/17 22:46> Subjective - Date & Time of Evaluation Date of Evaluation: 05/25/17 Time of Evaluation: 09:10 - Subjective Subjective: patient was seen and examined at bedside. states that he has been eating the pureed diet and has not had any issues with it. still complaining of mild pain, but much better than last evening. pt ready for d/c Objective - Vital Signs/Intake and Output Vital Signs (last 24 hours): Temp Pulse Resp BP Pulse Ox 98.3 F 63 20 118/83 100 05/25/17 06:00 05/25/17 06:00 05/25/17 06:00 05/25/17 06:00 05/25/17 06:00 Intake and Output: 05/25/17 05/26/17 18:59 06:59 Intake Total 500 Balance 500 - Labs Labs: 05/25/17 07:33 05/25/17 07:32 PT 10.7 Seconds (9.9-11.8) 05/24/17 06:40 INR 0.99 (0.93-1.08) 05/24/17 06:40 APTT 27.7 Seconds (23.7-30.8) 05/22/17 21:19 - Additional Findings Additional findings: - Constitutional Appears: Non-toxic, No acute distress - Head Exam Head Exam: ATRAUMATIC, NORMOCEPHALIC - Eye Exam Eye Exam: EOMI, Normal appearance, PERRL - ENT Exam Additional comments: Mild erythema posterior oropharynx - Neck Exam Neck exam: Negative for: Lymphadenopathy, Meningismus, Thyromegaly - Respiratory Exam Respiratory Exam: Chest Wall Tenderness, Clear to Auscultation Bilateral. absent: Rales, Rhonchi, Wheezes, Respiratory Distress - Cardiovascular Exam Cardiovascular Exam: RRR, +S1, +S2. absent: Bradycardia, Tachycardia - GI/Abdominal Exam GI & Abdominal Exam: Normal Bowel Sounds, Soft. absent: Distended, Firm, Guarding, Rebound, Rigid, Tenderness - Extremities Exam Extremities exam: Negative for: calf tenderness, pedal edema - Back Exam Back exam: absent: CVA tenderness (L), CVA tenderness (R) - Neurological Exam Neurological exam: Alert, CN II-XII Intact, Oriented x3 - Psychiatric Exam Psychiatric exam: Anxious, Normal Affect - Skin Skin Exam: Dry, Intact, Normal Color Assessment and Plan - Assessment and Plan (Free Text) Assessment: 36 year old male with a past medical history of asthma who presents with 2 months of worsening reflux symptoms, including morning cough, night-time awakenings, and reported hematemesis . Patient underwent EGD that showed chronic gastritis and a hypophargeal lesion. Patient was supposed to be discharged yesterday but due to PHOTOENGRAVER called last night due to acute resp distress , pt spent the night. This morning in NAD and satting well on RA, w/ no complaints on pureed diet. Encouraged to continue pureed diet and avoid sodas and bulky food. Pt prescribed rescue inhaler, ptx, and encouraged to make appt with ENT for f/u. Pt also prescribed nicotine patch and educated on the benefits of quitting tobacco use. Refer to d/c summary for more information. Pt will be discharged today. Patient was seen, evaluated and discussed with attending, Dr. Franklin. Chanelle August PGY1 <Lilo Franklin B - Last Filed: 05/26/17 13:50> Objective - Vital Signs/Intake and Output Vital Signs (last 24 hours): Temp Pulse Resp BP Pulse Ox 98.3 F 63 20 118/83 100 05/25/17 06:00 05/25/17 06:00 05/25/17 06:00 05/25/17 06:00 05/25/17 06:00 - Labs Labs: 05/25/17 07:33 05/25/17 07:32 PT 10.7 Seconds (9.9-11.8) 05/24/17 06:40 INR 0.99 (0.93-1.08) 05/24/17 06:40 APTT 27.7 Seconds (23.7-30.8) 05/22/17 21:19 Attending/Attestation - Attestation I have personally seen and examined this patient.: Yes I have fully participated in the care of the patient.: Yes I have reviewed all pertinent clinical information, including history, physical exam and plan: Yes Notes (Text): I have seen and examined the patient at bedside. 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 He had multiple visits in ED. GI consult appreciated. Patient was found to have 1 cm hypopharyngeal polyp in EGD. ENT was consulted however they cannot see the patient for atleast 2 days so it was decided to send the patient with outpatient ENT followup. Advised patient to have a puree diet. Start protonix and ventolin inhaler. Tobacco cessation counselling provided. Follow up in [facility] ENT clinic and pmd of choice. Dr Lilo Franklin
== END 2017-05-25 18:10 | disposition home or self-care (01) | DRG 88 ==
LOC: ED 21:05 → ERH 05-23 03:56 → 3RNO 05-23 06:55 → OBSVTOIN 05-23 14:59
PROVIDERS: ADMIT Internal Medicine; ATTEND Hospitalist
PROC: 0DB68ZX Excision of Stomach, Via Natural or Artificial Opening Endoscopic, Diagnostic (ICD-10-PCS; principal; 2017-05-24 14:00)
DX: J44.9 Chronic obstructive pulmonary disease, unspecified (principal); K92.0 Hematemesis; K29.50 Unspecified chronic gastritis without bleeding; B96.81 Helicobacter pylori [H. pylori] as the cause of diseases classified elsewhere; J39.2 Other diseases of pharynx; K21.9 Gastro-esophageal reflux disease without esophagitis; F17.210 Nicotine dependence, cigarettes, uncomplicated; F41.9 Anxiety disorder, unspecified; G43.909 Migraine, unspecified, not intractable, without status migrainosus; R07.89 Other chest pain

== ENCOUNTER 2017-07-06 10:35 | Emergency (ER) | payer OTHER ==
[2017-07-06 10:44] VITALS: BMI 25.4
[2017-07-06] MEDS ORDERED: Hydrocortisone-Pramoxine 1%-1% Foam(10 gm) TOP STA (11:04)
--- NOTE | 2017-07-06 11:13 | ED PDOC ---
Arrival/HPI - General Chief Complaint: Abnormal Skin Integrity Time Seen by Provider: 07/06/17 10:48 Historian: Patient - History of Present Illness Narrative History of Present Illness (Text): 07/06/17 11:06 36yo female present with complaint of painful bump to his rectum x 2days. States he used OTC preparation H without relieve. Pain is usually with bowel movement. Notes history of straining with bowel movement. Denies bleeding, abdominal pain, nausea, vomiting, fever, chills, any other complaint. Past Medical History - Provider Review Nursing Documentation Reviewed: Yes - Infectious Disease Hx of Infectious Diseases: None - Cardiac Hx Cardiac Disorders: No - Pulmonary Hx Asthma: Yes - Neurological Hx Migraine: Yes - HEENT Hx HEENT Disorder: No - Renal Hx Renal Disorder: No - Endocrine/Metabolic Hx Endocrine Disorders: No - Hematological/Oncological Hx Blood Disorders: No - Integumentary Hx Dermatological Disorder: No - Musculoskeletal/Rheumatological Other/Comment: rt knee surgery - Gastrointestinal Hx Gastrointestinal Disorders: No - Genitourinary/Gynecological Hx Genitourinary Disorders: No - Psychiatric Hx Anxiety: Yes Hx Substance Use: No - Surgical History Other/Comment: right knee repair 2005 with screw placement - Anesthesia Hx Anesthesia: Yes Hx Anesthesia Reactions: No Hx Malignant Hyperthermia: No - Suicidal Assessment Feels Threatened In Home Enviroment: No Family/Social History - Physician Review Nursing Documentation Reviewed: Yes Family/Social History: Unknown Family HX Smoking Status: Heavy Smoker > 10 Cigarettes Daily Hx Alcohol Use: No Hx Substance Use: No Allergies/Home Meds Allergies/Adverse Reactions: Allergies No Known Allergies Allergy (Verified 05/15/17 21:14) Review of Systems - Physician Review All systems were reviewed & negative as marked: Yes - Review of Systems Constitutional: Normal Eyes: Normal ENT: Normal Respiratory: Normal Cardiovascular: Normal Gastrointestinal: Other (Rectal pain). absent: Abdominal Pain, Constipation, Diarrhea, Nausea, Vomiting, Hematochezia, Hematemesis Genitourinary Male: Normal Musculoskeletal: Normal Skin: Normal Neurological: Normal Endocrine: Normal Hemo/Lymphatic: Normal Psychiatric: Normal Physical Exam Vital Signs Reviewed: Yes Temperature: Afebrile Blood Pressure: Normal Pulse: Regular Respiratory Rate: Normal Appearance: Positive for: Well-Appearing, Non-Toxic, Comfortable Pain Distress: None Mental Status: Positive for: Alert and Oriented X 3 - Systems Exam Head: Present: Atraumatic, Normocephalic Pupils: Present: PERRL Extroacular Muscles: Present: EOMI Conjunctiva: Present: Normal Mouth: Present: Moist Mucous Membranes Neck: Present: Normal Range of Motion Respiratory/Chest: Present: Clear to Auscultation, Good Air Exchange. No: Respiratory Distress, Accessory Muscle Use Cardiovascular: Present: Regular Rate and Rhythm, Normal S1, S2. No: Murmurs Abdomen: Present: Normal Bowel Sounds. No: Tenderness, Distention, Peritoneal Signs Rectal: Present: Hemorrhoids (Mildy tender nonstrangulated external hemorrhoid. No bleeding), Normal Rectal Tone. No: Rectal Tenderness, Fissures Back: Present: Normal Inspection Upper Extremity: Present: Normal Inspection. No: Cyanosis, Edema Lower Extremity: Present: Normal Inspection. No: Edema Neurological: Present: GCS=15, CN II-XII Intact, Speech Normal Skin: Present: Warm, Dry, Normal Color. No: Rashes Psychiatric: Present: Alert, Oriented x 3, Normal Insight, Normal Concentration Medical Decision Making - Medication Orders Current Medication Orders: Hydrocortisone/Pramoxine (Proctofoam) 1 gm TOP ONCE STA Stop: 07/06/17 11:05 Tramadol HCl (Ultram) 50 mg PO STAT STA Stop: 07/06/17 11:06 Disposition/Present on Arrival - Present on Arrival Any Indicators Present on Arrival: No History of DVT/PE: No History of Uncontrolled Diabetes: No Urinary Catheter: No History of Decub. Ulcer: No History Surgical Site Infection Following: None - Disposition Have Diagnosis and Disposition been Completed?: Yes Diagnosis: Hemorrhoid Disposition: HOME/ ROUTINE Disposition Time: 11:25 Patient Plan: Discharge Condition: STABLE Discharge Instructions (ExitCare): Hemorrhoids (ED) Additional Instructions: Do warm sitz bath and apply cream as directed Increase your fiber intake follow up with your Doctor/surgeon Return to ED for any new or worsening symptoms Prescriptions: Polyethylene Glycol 3350 [Miralax] 17 % PO TID #200 ml traMADol [Ultram] 50 mg PO TID #9 tab Referrals: Denver Hendrickson MD [Medical Doctor] - Follow up with primary
[2017-07-06 11:54] VITALS: O2SAT 100
[2017-07-06 11:56] VITALS: BP 132/72; PULSE 78; RESP 20; TEMP 98.7
== END 2017-07-06 12:07 | disposition home or self-care (01) ==
LOC: ED 10:35
DX: K64.4 Residual hemorrhoidal skin tags (principal); F17.210 Nicotine dependence, cigarettes, uncomplicated

== ENCOUNTER 2017-09-25 18:20 | Emergency (ER) | payer OTHER ==
[2017-09-25 19:13] VITALS: TEMP 97.6; BMI 23.3
[2017-09-25] MEDS ORDERED: Sodium Chloride 0.9% 1,000 ML IV STA (19:34)
[2017-09-25 20:37] LABS: BASO # 0.05 K/mm3 (0.0-2.0); BASO % 0.4 % (0.0-3.0); EOS # 0.3 (0.0-0.7); EOS % 2.2 % (1.5-5.0); GRAN # 7.68 (1.4-6.5); GRAN % 64.9 % (50.0-68.0); HEMOGLOBIN 16.5 g/dL (14.0-18.0); LYMPH # 2.8 (1.2-3.4); LYMPH % 23.6 % (22.0-35.0); MEAN CORPUSCULAR HEMOGLOBIN 30.6 pg (25.0-35.0); MEAN CORPUSCULAR HGB CONC 34.7 g/dl (31.0-37.0); MEAN PLATELET VOLUME 10.7 fl (7.0-11.0); MONO # 1.1 (0.1-0.6); MONO % 8.9 % (1.0-6.0); RBC 5.4 10^6/uL (3.5-6.1); RED CELL DISTRIBUTION WIDTH 13.5 % (11.5-14.5); WHITE BLOOD COUNT 11.8 10^3/ul (4.5-11.0)
[2017-09-25 20:53] LABS: INR 1.03 (0.93-1.08); PARTIAL THROMBOPLASTIN TIME 29.3 Seconds (25.1-36.5); PROTHROMBIN TIME 11.7 SECONDS (9.4-12.5)
[2017-09-25 20:59] LABS: TROPONIN I < 0.01 ng/mL
--- NOTE | 2017-09-25 21:08 | ED PDOC ---
Arrival/HPI - General Chief Complaint: Abdominal Pain Time Seen by Provider: 09/25/17 18:45 Historian: Patient - History of Present Illness Narrative History of Present Illness (Text): 09/25/17 21:06 Dayday Zelaya is a 36 year old male, with no significant past medical history, who presented to the Emergency department complaining of epigastric pain radiating to his chest today. Patient also reports feeling diaphoretic and dizziness. Patient denies any fever, chills, shortness of breath, nausea, vomiting, diarrhea, urinary symptoms, back pain, neck pain, headache, or any other complaints. Symptom Onset: Gradual Symptom Course: Unchanged Activities at Onset: Light Context: Home Past Medical History - Provider Review Nursing Documentation Reviewed: Yes - Infectious Disease Hx of Infectious Diseases: None - Cardiac Hx Cardiac Disorders: No - Pulmonary Hx Asthma: Yes - Neurological Hx Migraine: Yes - HEENT Hx HEENT Disorder: No - Renal Hx Renal Disorder: No - Endocrine/Metabolic Hx Endocrine Disorders: No - Hematological/Oncological Hx Blood Disorders: No - Integumentary Hx Dermatological Disorder: No - Musculoskeletal/Rheumatological Other/Comment: rt knee surgery - Gastrointestinal Hx Gastrointestinal Disorders: Yes Hx Gastroesophageal Reflux: Yes - Genitourinary/Gynecological Hx Genitourinary Disorders: No - Psychiatric Hx Psychophysiologic Disorder: Yes Hx Anxiety: Yes Hx Substance Use: No - Surgical History Hx Orthopedic Surgery: Yes (right knee) Other/Comment: right knee repair 2005 with screw placement - Anesthesia Hx Anesthesia: Yes Hx Anesthesia Reactions: No Hx Malignant Hyperthermia: No - Suicidal Assessment Feels Threatened In Home Enviroment: No Family/Social History - Physician Review Nursing Documentation Reviewed: Yes Family/Social History: Unknown Family HX Smoking Status: Heavy Smoker > 10 Cigarettes Daily Hx Alcohol Use: No Hx Substance Use: No Allergies/Home Meds Allergies/Adverse Reactions: Allergies No Known Allergies Allergy (Verified 09/25/17 19:00) Review of Systems - Physician Review All systems were reviewed & negative as marked: Yes - Review of Systems Constitutional: Normal. absent: Fevers Eyes: Normal ENT: Normal Respiratory: Normal. absent: SOB, Cough Cardiovascular: Chest Pain Gastrointestinal: Abdominal Pain. absent: Diarrhea, Vomiting Genitourinary Male: Normal. absent: Dysuria, Frequency, Hematuria, Urinary Output Changes Musculoskeletal: Normal. absent: Back Pain, Neck Pain Skin: Normal. absent: Rash Neurological: Dizziness. absent: Headache Endocrine: Normal Hemo/Lymphatic: Normal Psychiatric: Normal Physical Exam Vital Signs Reviewed: Yes Vital Signs Temp Pulse Resp BP Pulse Ox 09/26/17 00:15 80 18 125/78 99 09/25/17 23:35 85 18 127/80 100 09/25/17 19:01 97.6 F 19 129/84 Temperature: Afebrile Blood Pressure: Normal Pulse: Regular Respiratory Rate: Normal Appearance: Positive for: Well-Appearing, Non-Toxic, Comfortable Pain Distress: None Mental Status: Positive for: Alert and Oriented X 3 - Systems Exam Head: Present: Atraumatic, Normocephalic Pupils: Present: PERRL Extroacular Muscles: Present: EOMI Conjunctiva: Present: Normal Mouth: Present: Moist Mucous Membranes Neck: Present: Normal Range of Motion Respiratory/Chest: Present: Clear to Auscultation, Good Air Exchange. No: Respiratory Distress, Accessory Muscle Use Cardiovascular: Present: Regular Rate and Rhythm, Normal S1, S2. No: Murmurs Abdomen: Present: Normal Bowel Sounds. No: Tenderness, Distention, Peritoneal Signs Back: Present: Normal Inspection Upper Extremity: Present: Normal Inspection. No: Cyanosis, Edema Lower Extremity: Present: Normal Inspection. No: Edema Neurological: Present: GCS=15, CN II-XII Intact, Speech Normal Skin: Present: Warm, Dry, Normal Color. No: Rashes Psychiatric: Present: Alert, Oriented x 3, Normal Insight, Normal Concentration Medical Decision Making ED Course and Treatment: 09/25/17 19:30 Impression: 36 year old male complaining of epigastric pain radiating to chest, dizziness, and diaphoresis. Plan: -- CT Abdomen and Pevlis with IV contrast -- EKG -- Chest X-ray -- Labs, cardiac enzymes, amylase, lipase -- Urinalysis -- IV fluids -- Zofran -- Pepcid -- Protonix -- Reassess and disposition Progress Notes: Reviewed EKG, NSR at [address] bpm[address] Non-specific ST/T wave changes. 09/25/17 21:55 CT Abdomen and Pelvis shows: Lower thorax: Mild atelectasis. ABDOMEN: Liver: Unremarkable. No mass. Gallbladder and bile ducts: No calcified stones. No ductal dilation. Pancreas: No ductal dilation. No mass. Spleen: No splenomegaly. Adrenals: No mass. Kidneys and ureters: No mass. No hydronephrosis. Stomach and bowel: No definite mural thickening. No obstruction. Appendix: No findings to suggest acute appendicitis. PELVIS: Bladder: Unremarkable. Reproductive: Unremarkable as visualized. ABDOMEN and PELVIS: Intraperitoneal space: No significant fluid collection. No free air. Bones/joints: No acute fracture. Soft tissues: Unremarkable. Vasculature: Unremarkable. No aneurysm. Lymph nodes: No pathologically enlarged lymph nodes. IMPRESSION: 1. No definite acute intraabdominal abnormality. 2. Incidental/non-acute findings are described above. 09/26/17 00:23 On re-evaluation, patient feels better and is in no acute distress. I have discussed the results and plan with the patient, who expresses understanding. Patient in agreement with plan to be discharged home. Patient is stable for discharge. Patient was instructed to follow up with physician or return if symptoms worsen or new concerning symptoms arise. - Lab Interpretations Lab Results: 09/25/17 20:25 09/25/17 20:25 Lab Results 09/25/17 20:25: Sodium 136, Potassium 3.6, Chloride 100, Carbon Dioxide 28, Anion Gap 12, BUN 15, Creatinine 0.8, Est GFR ( Amer) > 60, Est GFR (Non- Af Amer) > 60, Random Glucose 102, Calcium 9.5, Total Bilirubin 0.8, AST 29, ALT 52, Alkaline Phosphatase 70, Lactate Dehydrogenase 462, Total Creatine Kinase 117, Troponin I < 0.01, Total Protein 7.7, Albumin 4.3, Globulin 3.4, Albumin/Globulin Ratio 1.2, Amylase 86, Lipase 113 09/25/17 20:25: PT 11.7, INR 1.03, APTT 29.3 09/25/17 20:25: WBC 11.8 H D, RBC 5.40, Hgb 16.5 D, Hct 47.5, MCV 88.0, MCH 30.6, MCHC 34.7, RDW 13.5, Plt Count 194, MPV 10.7, Gran % 64.9, Lymph % (Auto) 23.6, Treasure % (Auto) 8.9 H, Eos % (Auto) 2.2, Baso % (Auto) 0.4, Gran # 7.68 H, Lymph # 2.8, Treasure # 1.1 H, Eos # 0.3, Baso # 0.05 I have reviewed the lab results: Yes - RAD Interpretation Radiology Orders: 09/25/17 19:35 ABD & PELVIS IV CONTRAST ONLY [CT] [employer] Superintendent: ED Physician, Radiologist - EKG Interpretation Interpreted by ED Physician: Yes Type: 12 lead EKG - Medication Orders Current Medication Orders: Discontinued Medications Famotidine (Pepcid) 20 mg IVP STAT STA Stop: 09/25/17 19:35 Last Admin: 09/25/17 20:30 Dose: 20 mg IVP Administration Document 09/25/17 20:30 OCS (Rec: 09/25/17 21:14 [id number]) Charges for Administration # of IVP Administrations 1 Sodium Chloride (Sodium Chloride 0.9%) 1,000 mls @ 100 mls/hr IV .Q10H STA Stop: 09/26/17 05:33 Last Admin: 09/25/17 20:30 Dose: 100 mls/hr eMAR Start Stop Document 09/25/17 20:30 OCS (Rec: 09/25/17 21:14 [id number]) Intravenous Solution Start Date 09/25/17 Start Time 21:14 Ondansetron HCl (Zofran Inj) 4 mg IVP STAT STA Stop: 09/25/17 19:35 Last Admin: 09/25/17 20:30 Dose: 4 mg IVP Administration Document 09/25/17 20:30 OCS (Rec: 09/25/17 21:14 [id number]) Charges for Administration # of IVP Administrations 1 Pantoprazole Sodium (Protonix Inj) 40 mg IVP ONCE STA Stop: 09/25/17 19:37 Last Admin: 09/25/17 20:30 Dose: 40 mg IVP Administration Document 09/25/17 20:30 OCS (Rec: 09/25/17 21:14 [id number]) Charges for Administration # of IVP Administrations 1 - Scribe Statement The provider has reviewed the documentation as recorded by the Scribdemarcus Graves All medical record entries made by the Scribe were at my direction and personally dictated by me. I have reviewed the chart and agree that the record accurately reflects my personal performance of the history, physical exam, medical decision making, and the department course for this patient. I have also personally directed, reviewed, and agree with the discharge instructions and disposition. Disposition/Present on Arrival - Present on Arrival Any Indicators Present on Arrival: No History of DVT/PE: No History of Uncontrolled Diabetes: No Urinary Catheter: No History of Decub. Ulcer: No History Surgical Site Infection Following: None - Disposition Have Diagnosis and Disposition been Completed?: Yes Diagnosis: Costochondral chest pain, Abdominal pain Disposition: HOME/ ROUTINE Disposition Time: 00:23 Condition: GOOD Discharge Instructions (ExitCare): Chest Pain (ED), Acute Abdominal Pain (ED) Prescriptions: Pantoprazole Sodium [Protonix] 40 mg PO DAILY #14 ect Forms: [employer] ([place])
[2017-09-25 21:09] LABS: ALB/GLOB RATIO 1.2 (1.1-1.8); ALBUMIN 4.3 g/dL (3.0-4.8); ALT/SGPT 52 U/L (7-56); AMYLASE 86 U/L (35-125); AST/SGOT 29 U/L (17-59); BLOOD UREA NITROGEN 15 mg/dL (7-21); CALCIUM 9.5 mg/dL (8.4-10.5); GFR AFRICAN-AMERICAN > 60; GFR NON-AFRICAN AMERICAN > 60; LIPASE 113 U/L (23-300)
[2017-09-25] MEDS ORDERED: Iohexol 350 MG/100 ML VIAL ONE (21:11)
--- NOTE | 2017-09-25 21:55 | CT ---
EXAM: CT Abdomen and Pelvis With Intravenous Contrast CLINICAL HISTORY: 36 years old, male; Pain; Abdominal pain; Localized; Lower; Patient HX: Pain in abdomen, radiating into neck and lt arm; Additional info: Abd pain TECHNIQUE: Axial computed tomography images of the abdomen and pelvis with intravenous contrast. All CT scans at this facility use one or more dose reduction techniques, viz.: automated exposure control; ma/kV adjustment per patient size (including targeted exams where dose is matched to indication; i.e. head); or iterative reconstruction technique. Coronal and sagittal reformatted images were created and reviewed. CONTRAST: 100 mL of omni 350 administered intravenously. COMPARISON: CT - ABD PELVIS W/O PO OR IV CONT 2017-05-22 23:10 FINDINGS: Lower thorax: Mild atelectasis. ABDOMEN: Liver: Unremarkable. No mass. Gallbladder and bile ducts: No calcified stones. No ductal dilation. Pancreas: No ductal dilation. No mass. Spleen: No splenomegaly. Adrenals: No mass. Kidneys and ureters: No mass. No hydronephrosis. Stomach and bowel: No definite mural thickening. No obstruction. Appendix: No findings to suggest acute appendicitis. PELVIS: Bladder: Unremarkable. Reproductive: Unremarkable as visualized. ABDOMEN and PELVIS: Intraperitoneal space: No significant fluid collection. No free air. Bones/joints: No acute fracture. Soft tissues: Unremarkable. Vasculature: Unremarkable. No aneurysm. Lymph nodes: No pathologically enlarged lymph nodes. IMPRESSION: 1. No definite acute intraabdominal abnormality. 2. Incidental/non-acute findings are described above.
[2017-09-26 04:51] VITALS: RESP 18
[2017-09-26 04:52] VITALS: BP 125/78; PULSE 80; O2SAT 99
--- NOTE | 2017-09-26 11:40 | CARD ---
APPROVED REPORT EKG Measurement Heart [id number] [id number] <Conclusion> Normal sinus rhythm with borderline 1st degree AVB ST elevation, consider early repolarization, pericarditis, or injury No change except the rate is slower
== END 2017-09-26 00:20 | disposition home or self-care (01) ==
LOC: ED 18:20
DX: M94.0 Chondrocostal junction syndrome [Tietze] (principal); R10.9 Unspecified abdominal pain; K21.9 Gastro-esophageal reflux disease without esophagitis; J45.909 Unspecified asthma, uncomplicated; F17.210 Nicotine dependence, cigarettes, uncomplicated
CPT/HCPCS: 74177; 80053; 82150; 82550; 83615; 83690; 84484; 85025; 85610; 85730; 93005; 96374; 96375; 99283; C9113; J2405; J7040; Q9967

== ENCOUNTER 2017-12-18 12:51 | Emergency (ER) | payer OTHER ==
[2017-12-18 13:03] VITALS: RESP 18; O2SAT 98; BMI 24.6
--- NOTE | 2017-12-18 15:03 | CT ---
PROCEDURE: CT Cervical Spine without contrast HISTORY: Back pain after fall COMPARISON: None available. TECHNIQUE: Axial computed tomography images were obtained of the cervical spine without the use of intravenous contrast. Coronal and sagittal reformatted images were created and reviewed. Radiation dose: Total exam DLP = 455 mGy-cm. This CT exam was performed using one or more of the following dose reduction techniques: Automated exposure control, adjustment of the mA and/or kV according to patient size, and/or use of iterative reconstruction technique. FINDINGS: VERTEBRAE: No fracture. Normal alignment. No destructive bony lesion. DISCS/SPINAL CANAL/NEURAL FORAMINA: No significant central canal or neural foraminal stenosis. Discs heights are grossly preserved. PARASPINAL SOFT TISSUES: Unremarkable. OTHER FINDINGS: None. IMPRESSION: Unremarkable CT of the cervical spine.
--- NOTE | 2017-12-18 15:21 | RAD ---
HISTORY: right upper back pain COMPARISON: No prior. FINDINGS: LUNGS: No active pulmonary disease. PLEURA: No significant pleural effusion identified, no pneumothorax apparent. CARDIOVASCULAR: Normal. OSSEOUS STRUCTURES: No significant abnormalities. VISUALIZED UPPER ABDOMEN: Normal. OTHER FINDINGS: None. IMPRESSION: No active disease.
--- NOTE | 2017-12-18 15:21 | RAD ---
PROCEDURE: Radiographs of the Right Shoulder HISTORY: right shoulder pain s/p fall 1 week ago COMPARISON: No prior. FINDINGS: BONES: Normal. No fracture. JOINTS: Normal. Glenohumeral and acromioclavicular joints preserved. No osteoarthritis. SOFT TISSUES: Normal. OTHER FINDINGS: None. IMPRESSION: Normal radiographs of the right shoulder.
[2017-12-18 15:55] VITALS: BP 122/55; PULSE 67; TEMP 98
--- NOTE | 2017-12-18 16:45 | ED PDOC ---
Arrival/HPI - General Chief Complaint: Upper Extremity Problem/Injury Time Seen by Provider: 12/18/17 14:13 Historian: Patient - History of Present Illness Narrative History of Present Illness (Text): 12/18/17 16:44 37-year-old male presents today with right sided shoulder pain and right-sided neck and upper back pain. Patient states about a week ago he had fallen from approximately 4 foot height. Patient was seen at [facility] and states he had multiple xrays performed. pt states pain slightly improved and patient returned to work. pt states has again worsened. pt c/o pain to anterior aspect of the right shoulder, the right side of the upper back and right side of the neck. pt states he has been taking motrin at home without improvement. pt denies numbness , weakness, tingling in the extremity. no dizziness or weakness. no headache. no other complaints . Time/Duration: 1 week Symptom Onset: Gradual Symptom Course: Worsening Quality: Aching Severity Level: 8 Past Medical History - Provider Review Nursing Documentation Reviewed: Yes - Travel History Have you recently traveled outside [place] w/in the past 3 mons?: No - Infectious Disease Hx of Infectious Diseases: None - Tetanus Immunization Tetanus Immunization: Unknown - Cardiac Hx Cardiac Disorders: No - Pulmonary Hx Asthma: Yes - Neurological Hx Migraine: Yes - HEENT Other/Comment: "swollen throat" - Renal Hx Renal Disorder: No - Endocrine/Metabolic Hx Endocrine Disorders: No - Hematological/Oncological Hx Blood Disorders: No - Integumentary Hx Dermatological Disorder: No - Musculoskeletal/Rheumatological Other/Comment: rt knee surgery - Gastrointestinal Hx Gastrointestinal Disorders: No - Genitourinary/Gynecological Hx Genitourinary Disorders: No - Psychiatric Hx Anxiety: Yes Hx Substance Use: No - Surgical History Hx Orthopedic Surgery: Yes (Rt. Knee) - Anesthesia Hx Anesthesia: Yes Hx Anesthesia Reactions: No Hx Malignant Hyperthermia: No - Suicidal Assessment Feels Threatened In Home Enviroment: No Family/Social History - Physician Review Nursing Documentation Reviewed: Yes Family/Social History: Unknown Family HX Smoking Status: Heavy Smoker > 10 Cigarettes Daily Hx Alcohol Use: No Hx Substance Use: No Allergies/Home Meds Allergies/Adverse Reactions: Allergies No Known Allergies Allergy (Verified 12/18/17 13:14) Home Medications: Home Meds Medication Instructions Recorded Confirmed Ibuprofen [Motrin Tab] 800 mg PO Q6 PRN 12/18/17 12/18/17 Review of Systems - Review of Systems Constitutional: absent: Fatigue, Fevers Respiratory: absent: SOB, Cough Cardiovascular: absent: Chest Pain, Palpitations Gastrointestinal: absent: Abdominal Pain, Nausea, Vomiting Musculoskeletal: Arthralgias (right shoulder pain), Neck Pain Skin: absent: Rash, Pruritis Neurological: absent: Headache, Dizziness Psychiatric: absent: Anxiety, Depression Physical Exam Vital Signs Reviewed: Yes Vital Signs Temp Pulse Resp BP Pulse Ox 12/18/17 15:54 98 F 67 18 122/55 L 98 12/18/17 13:02 98.4 F 86 18 152/86 H 98 Temperature: Afebrile Blood Pressure: Hypertensive Pulse: Regular Respiratory Rate: Normal Appearance: Positive for: Well-Appearing, Non-Toxic, Uncomfortable Pain Distress: None Mental Status: Positive for: Alert and Oriented X 3 - Systems Exam Head: Present: Atraumatic Pupils: Present: PERRL Extroacular Muscles: Present: EOMI Mouth: Present: Moist Mucous Membranes Neck: Present: Normal Range of Motion, Paraspinal Tenderness (+ right sided paraspinal and trapezius tenderness), Trachea Midline. No: MIDLINE TENDERNESS Respiratory/Chest: Present: Clear to Auscultation, Good Air Exchange. No: Respiratory Distress, Accessory Muscle Use, Wheezes, Rhonchi, Tachypneic, Tender to Palpation Cardiovascular: Present: Regular Rate and Rhythm, Normal S1, S2. No: Murmurs Abdomen: No: Tenderness, Rebound, Guarding Back: Present: Normal Inspection, Paraspinal Tenderness (+ right sided upper thoracic paraspinal and medial scapular tenderness). No: Midline Tenderness Upper Extremity: Present: Normal Inspection, NORMAL PULSES, Tenderness (right shoulder; + ttp over anterior aspect of right shoulder; + ttp over the lateral aspect; limited abduction of the shoulder; no edema, no erythema; no elbow tenderness, sensation and distal pulses intact; cap refill <2. full rom of elbow and hand/wrist. ), Neurovascularly Intact, Capillary Refill < 2s. No: Normal ROM, Swelling, Erythema, Deformity Lower Extremity: Present: Normal ROM Neurological: Present: GCS=15, Speech Normal, Motor Func Grossly Intact, Normal Sensory Function, Gait Normal Skin: Present: Warm, Dry, Normal Color. No: Rashes Psychiatric: Present: Alert, Oriented x 3 Medical Decision Making ED Course and Treatment: 12/18/17 16:56 Patient nontoxic well-appearing in no distress with stable vital signs X-rays of the right shoulder:FINDINGS: BONES: Normal. No fracture. JOINTS: Normal. Glenohumeral and acromioclavicular joints preserved. No osteoarthritis. SOFT TISSUES: Normal. OTHER FINDINGS: None. IMPRESSION: Normal radiographs of the right shoulder. cxr; FINDINGS: LUNGS: No active pulmonary disease. PLEURA: No significant pleural effusion identified, no pneumothorax apparent. CARDIOVASCULAR: Normal. OSSEOUS STRUCTURES: No significant abnormalities. VISUALIZED UPPER ABDOMEN: Normal. OTHER FINDINGS: None. IMPRESSION: No active disease. ct cervical spine; FINDINGS: VERTEBRAE: No fracture. Normal alignment. No destructive bony lesion. DISCS/SPINAL CANAL/NEURAL FORAMINA: No significant central canal or neural foraminal stenosis. Discs heights are grossly preserved. PARASPINAL SOFT TISSUES: Unremarkable. OTHER FINDINGS: None. IMPRESSION: Unremarkable CT of the cervical spine. toradol and flexeril given; pt reassessment; pt feeling better after medications; pt arrived with arm sling from previous ER visit; Anne advised the patient that he can use the sling sparingly, but i have discussed risk of frozen shoulder; i have advised patient to continue to stretch and move shoulder. I discussed all results with patient advised to followup with the orthopedist for the next 2 days. Return if symptoms worsen persist or new symptoms develop i advised the patient that although the xrays show no fracture; there is still a possibility for ligamentous or tendon injury the patient must see the orthopedist for further evaluation. Patient verbalizes understanding of discharge instructions and need for immediate followup. all aspects of this case were discussed the attending of record. Impression: shoulder pain, neck pain Motrin every 6 hours as needed for pain Flexeril one tablet every 8 hours as needed for muscle spasms: May cause drowsiness rest, ice Followup with the orthopedist within the next 2 days Followup with primary care physician within the next 2 days Return if symptoms worsen persist or if new symptoms develop Reassessment Condition: Re-examined, Improved - RAD Interpretation Radiology Orders: 12/18/17 14:13 CERVICAL SPINE W/O CONTRAST [CT] Stat CHEST PORTABLE [RAD] Stat SHOULDER RIGHT [RAD] Stat - Medication Orders Current Medication Orders: Discontinued Medications Diazepam (Valium) 5 mg PO ONCE ONE Stop: 12/18/17 14:14 Last Admin: 12/18/17 14:19 Dose: 5 mg Ketorolac Tromethamine (Toradol) 60 mg IM STAT STA Stop: 12/18/17 14:14 Last Admin: 12/18/17 14:19 Dose: 60 mg MAR Pain Assessment Document 12/18/17 14:19 JOSE DANIEL (Rec: 12/18/17 14:20 JOSE DANIEL [id number]) Pain Reassessment Is this a pain reassessment? Yes Presence of Pain Presence of Pain Yes Pain Scale Used Pain Scale Used Numeric Location Left, Right or Bilateral Right Pain Location Body Site Shoulder Description Description Constant Intensity of Pain at present 8 IM Administration Charges Document 12/18/17 14:19 JOSE DANIEL (Rec: 12/18/17 14:20 JOSE DANIEL [id number]) Injection Site MAR Injection Site Right Deltoid Charges for Administration # of IM Administrations 1 Disposition/Present on Arrival - Present on Arrival Any Indicators Present on Arrival: No History of DVT/PE: No History of Uncontrolled Diabetes: No Urinary Catheter: No History of Decub. Ulcer: No History Surgical Site Infection Following: None - Disposition Have Diagnosis and Disposition been Completed?: Yes Diagnosis: Shoulder pain, Neck pain Disposition: HOME/ ROUTINE Disposition Time: 16:42 Patient Plan: Discharge Patient Problems: Current Active Problems Problem Status Onset Neck pain Acute Shoulder pain Acute Condition: GOOD Discharge Instructions (ExitCare): Neck Pain, Shoulder Pain (DC) Additional Instructions: Motrin every 6 hours as needed for pain Flexeril one tablet every 8 hours as needed for muscle spasms: May cause drowsiness rest, ice Followup with the orthopedist within the next 2 days Followup with primary care physician within the next 2 days Return if symptoms worsen persist or if new symptoms develop Prescriptions: Cyclobenzaprine [Cyclobenzaprine HCl] 10 mg PO Q8 #10 tab Ibuprofen [Motrin] 600 mg PO Q6H PRN #20 tab PRN Reason: pain/fever reduction Referrals: Jaswinder Boyce MD [Primary Care Provider] - Follow up with primary Piero Wayne MD [Staff Provider] - Follow up with primary [facility] [Outside] - Follow up with primary [facility] [place] [Outside] - Follow up with primary Forms: [employer] (Hungarian), WORK NOTE
== END 2017-12-18 17:07 | disposition home or self-care (01) ==
LOC: ED 12:51
DX: M54.2 Cervicalgia (principal); M25.511 Pain in right shoulder
CPT/HCPCS: 71045; 72125; 73030; 96372; 99284; J1885